=== PATIENT | female | born 1965 | race Caucasian/White ===

== ENCOUNTER 2017-06-07 14:01 | Observation (INO) ==
--- NOTE | 2017-06-07 16:51 | Emergency Department Note ---
Disposition Clinical Impression: Chest pain Qualifiers: Chest pain type: unspecified Qualified Code(s): R07.9 - Chest pain, unspecified Disposition: Admitted As Inpatient Condition: Good Referrals: Clarita Perdue MD [Primary Care Provider] - Forms: ED Satisfaction Letter Time of Disposition: 19:51 Chest Pain HPI - General Chief Complaint: ED Chest Pain Stated Complaint: chest pain, SIMA Time Seen by Provider: 06/07/17 16:38 Source: patient Limitations: no limitations Vital Signs Reviewed: Yes Nursing Notes Reviewed: Yes - History of Present Illness HPI Narrative: 52-year-old comes in complaining of chest pain began earlier today says it went into her arm and up into her jaw. Actually getting a cardiac echo when the chest pain began. Pt complaint: chest pain Onset (ago): Just [employer] Duration: constant Onset: during rest Pain Location: substernal, left chest Severity scale (1-10): 7 Pain Radiation: neck Improves with: nothing Worsens with: nothing Treatments prior to arrival chest pain: none - Related Data Home Medications Medication Instructions Recorded Confirmed Montelukast [Singulair] 10 mg PO HS 04/17/15 06/07/17 hydrOXYzine HCl [Hydroxyzine HCl] 50 mg PO HS 04/17/15 06/07/17 Albuterol Sulfate [Proair Hfa] 2 puff IH Q4H PRN 11/30/15 06/07/17 Escitalopram [Lexapro] 20 mg PO DAILY 11/30/15 06/07/17 TraZODone 100 mg PO HS 11/30/15 06/07/17 Ergocalciferol (VITAMIN D2) 50,000 unit PO TU 06/07/17 06/07/17 [Vitamin D2] Furosemide [Lasix] 40 mg PO DAILY 06/07/17 06/07/17 Lansoprazole [Prevacid] 30 mg PO BID 06/07/17 06/07/17 Spironolactone [Aldactone] 25 mg PO DAILY 06/07/17 06/07/17 Tizanidine HCl 4 mg PO TID PRN 06/07/17 06/07/17 Allergies Allergy/AdvReac Type Severity Reaction Status Date / Time Cyclobenzaprine Allergy See Verified 11/30/15 10:36 Comments diazepam Allergy Itching Verified 01/02/17 16:13 prednisone Allergy See Verified 11/30/15 10:36 Comments quetiapine Allergy See Verified 11/30/15 10:36 Comments Sulfa (Sulfonamide Allergy See Verified 11/30/15 10:36 Antibiotics) Comments All systems ED: reviewed and negative except as stated. Constitutional: Denies: fever, chills, weakness, weight change Eyes: Denies: eye pain, eye discharge, vision change ENT ED: Denies: ear pain, throat pain, dental pain, hearing loss, epistaxis, congestion, dysphagia Cardiovascular: Reports: chest pain. Denies: palpitations, dyspnea on exertion , edema, syncope Respiratory: Denies: cough, dyspnea, wheezes, hemoptysis, stridor Gastrointestinal: Denies: abdominal pain, nausea, vomiting, diarrhea, constipation, hematemesis, melena, hematochezia Genitourinary: Denies: dysuria, frequency, hematuria, discharge Musculoskeletal: Denies: back pain, neck pain, arthralgia, myalgia Integumentary: Denies: rash, abrasion, lesions Neurological: Denies: headache, weakness, numbness, paresthesias, confusion, abnormal gait, vertigo Psychiatric: Denies: anxiety, depression, suicidal thoughts, homicidal thoughts , auditory hallucinations, visual hallucinations Endocrine: Denies: fatigue Hematological/Lymphatic: Denies: easy bleeding, easy bruising Allergic/Immunologic: Denies: facial swelling, urticaria Chest Pain PMH - Past Medical History Medical history: Reports: arthritis, asthma, atrial fibrillation, CHF, COPD, GERD, hyperlipidemia, hypertension, migraine, RA Surgical history: Reports: appendectomy, cholecystectomy, herniorrhaphy, hysterectomy, orthopedic, other, other Psychiatric history: Reports: anxiety, bipolar, depression, prior suicide attempt, schizophrenia - Social History Smoking Status: Never smoker Alcohol use: Reports: none Drug use: Reports: none Physical Exam - General Limitations: no limitations General appearance: alert, in no apparent distress - Head Head exam: atraumatic, normocephalic, normal inspection - Eye Eye exam: Present: normal appearance, PERRL, EOMI - ENT ENT exam: normal exam, normal oropharynx, mucous membranes moist - Neck Neck exam: Present: normal inspection, full ROM, trachea midline - Chest Chest inspection: Present: normal inspection, symmetric chest wall rise - Respiratory Respiratory exam: Present: normal lung sounds bilaterally - Cardiovascular Cardiovascular exam: Present: regular rate, normal rhythm, normal heart sounds - Abdominal Exam Abdominal exam: Present: soft, Non-Tender. Absent: tenderness, distention, guarding, rebound, rigidity - Extremities Exam Extremities exam: Present: normal inspection, full ROM. Absent: tenderness, pedal edema - Expanded Lower Extremity Exam Neurovascular/Tendon exam: Present: normal capillary refill Gait: observed and normal - Back Exam Back exam: Present: normal inspection, full ROM. Absent: tenderness - Neurological Exam Neurological exam: Present: alert, oriented X3 - Psychiatric Psychiatric exam: Present: normal affect, normal mood - Skin Skin exam: Present: warm, dry, intact, normal color Course - Reevaluation(s) Reevaluation #1: 52-year-old with intermittent chest pain. Initial troponin is negative EKG is negative. Time: 19:52 - Consultations Consultation #1: Discussed with ruby Shea. Time: 19:52 Vital Signs Temperature 97.7 F 06/07/17 15:03 Pulse Rate 68 06/07/17 15:03 Respiratory Rate 18 06/07/17 15:03 Blood Pressure 150/80 06/07/17 15:03 O2 Sat by Pulse Oximetry 99 06/07/17 15:03 Temperature 97.7 F 06/07/17 15:03 Pulse Rate 68 06/07/17 15:03 Respiratory Rate 18 06/07/17 15:03 Blood Pressure 150/80 06/07/17 15:03 O2 Sat by Pulse Oximetry 99 06/07/17 15:03 Oxygen Delivery Oxygen Delivery Room Air Chest Pain - Lab Data Lab results reviewed: Yes I reviewed the patient's lab results. Result diagrams: 06/07/17 16:49 06/07/17 16:49 Lab Results 06/07/17 06/07/17 06/07/17 Range/Units 16:49 16:49 16:49 WBC 7.5 (4.3-11.1) K/mcL RBC 5.31 H (3.82-4.97) M/mcL Hgb 13.0 (11.5-15.4) g/dL Hct 41.8 (35.3-44.9) % MCV 78.7 L (83.0-100.0) fL MCH 24.5 L (28.0-33.3) pg MCHC 31.1 L (31.6-35.5) g/dL RDW 16.9 H (11.5-14.5) % Plt Count 324 (140-400) K/mcL MPV 9.2 L (9.4-12.4) fL Immature Gran % 0.7 (0-4) % Seg Neutrophils % 63.3 % Lymphocytes % 27.1 % Monocytes % 5.7 % Eosinophils % 2.3 % Basophils % 0.9 % Neutrophils # 4.8 (1.6-8.9) K/mcL Lymphocytes # 2.0 (0.6-4.6) K/mcL Monocytes # 0.4 (0.0-1.3) K/mcL Eosinophils # 0.2 (0.0-0.6) K/mcL Basophils # 0.1 (0.0-0.2) K/mcL PT 10.6 (9.4-12.1) Seconds INR 1.0 APTT 31.9 (26.0-36.0) Seconds Sodium 136 (136-145) mEq/L Potassium 4.0 (3.5-5.1) mEq/L Chloride 103 (98-107) mEq/L Carbon Dioxide 27 (23-29) mEq/L BUN 11 (6-20) mg/dL Creatinine 0.79 (0.60-1.20) mg/dL Est GFR ( Amer) > 60 (> 60) Est GFR (Non-Af Amer) > 60 (> 60) BUN/Creatinine Ratio 14 (6-26) Glucose 96 (70-105) mg/dL Calculated Osmolality 281 (280-300) Calcium 9.1 (8.6-10.3) mg/dL Troponin I (< 0.04) ng/mL B-Natriuretic Peptide (Less than 100) pg/mL 06/07/17 06/07/17 Range/Units 16:49 16:49 WBC (4.3-11.1) K/mcL RBC (3.82-4.97) M/mcL Hgb (11.5-15.4) g/dL Hct (35.3-44.9) % MCV (83.0-100.0) fL MCH (28.0-33.3) pg MCHC (31.6-35.5) g/dL RDW (11.5-14.5) % Plt Count (140-400) K/mcL MPV (9.4-12.4) fL Immature Gran % (0-4) % Seg Neutrophils % % Lymphocytes % % Monocytes % % Eosinophils % % Basophils % % Neutrophils # (1.6-8.9) K/mcL Lymphocytes # (0.6-4.6) K/mcL Monocytes # (0.0-1.3) K/mcL Eosinophils # (0.0-0.6) K/mcL Basophils # (0.0-0.2) K/mcL PT (9.4-12.1) Seconds INR APTT (26.0-36.0) Seconds Sodium (136-145) mEq/L Potassium (3.5-5.1) mEq/L Chloride (98-107) mEq/L Carbon Dioxide (23-29) mEq/L BUN (6-20) mg/dL Creatinine (0.60-1.20) mg/dL Est GFR ( Amer) (> 60) Est GFR (Non-Af Amer) (> 60) BUN/Creatinine Ratio (6-26) Glucose (70-105) mg/dL Calculated Osmolality (280-300) Calcium (8.6-10.3) mg/dL Troponin I < 0.03 (< 0.04) ng/mL B-Natriuretic Peptide 121 H (Less than 100) pg/mL - EKG Data EKG attestation: Yes I reviewed and interpreted this EKG. EKG shows normal: sinus rhythm Rate: normal Rhythm: NSR Interpretation: no acute changes Heart Score - Score History: Slightly Suspicious EKG: Normal Age: 45-65 Risk Factors: No risk factors known Troponin: Less than normal limit HEART Score Total: 1
[2017-06-07 17:02] LABS: Basophils # 0.1 K/mcL (0.0-0.2); Basophils % 0.9 %; Eosinophils # 0.2 K/mcL (0.0-0.6); Eosinophils % 2.3 %; Hematocrit 41.8 % (35.3-44.9); Immature Granulocytes % 0.7 % (0-4); Lymphocytes % 27.1 %; Mean Corpuscular HGB Conc 31.1 g/dL (31.6-35.5); Mean Corpuscular Hemoglobin 24.5 pg (28.0-33.3); Mean Corpuscular Volume 78.7 fL (83.0-100.0); Mean Platelet Volume 9.2 fL (9.4-12.4); Monocytes # 0.4 K/mcL (0.0-1.3); Monocytes % 5.7 %; Neutrophils # 4.8 K/mcL (1.6-8.9); Platelet Count 324 K/mcL (140-400); Red Blood Count 5.31 M/mcL (3.82-4.97); Red Cell Distribution Width 16.9 % (11.5-14.5); Segmented Neutrophils % 63.3 %
[2017-06-07 17:06] LABS: Prothrombin Time 10.6 Seconds (9.4-12.1)
[2017-06-07 17:09] LABS: Activated Partial Thrombo Time 31.9 Seconds (26.0-36.0)
[2017-06-07 17:15] LABS: BUN/Creatinine Ratio 14 (6-26); Blood Urea Nitrogen 11 mg/dL (6-20); Calcium 9.1 mg/dL (8.6-10.3); Carbon Dioxide 27 mEq/L (23-29); Chloride 103 mEq/L (98-107); Glucose 96 mg/dL (70-105); Osmolality,Calculated 281 (280-300); Sodium 136 mEq/L (136-145); eGFR For African Americans > 60 (> 60); eGFR For Non-African Americans > 60 (> 60)
--- NOTE | 2017-06-07 20:48 | Internal Med History&Physical ---
Date of Encounter: 06/07/17 Time of Encounter: 20:10 Assessment and Plan (1) Chest pain Current visit: Yes Status: Acute Admit for overnight observation [facility] Initial troponin neg Telemetry NG for chest pain No ischemic changes on ECG Continue aspirin, statin Mildly bradycardic so no BB Qualifiers: Chest pain type: unspecified Qualified Code(s): R07.9 - Chest pain, unspecified (2) Paroxysmal A-fib Current visit: No Status: Chronic Continue home medications. Rate controlled (3) COPD (chronic obstructive pulmonary disease) Current visit: No Status: Chronic Well controlled Continue home medications Qualifiers: COPD type: emphysema Emphysema type: centrilobular Qualified Code(s): J43.2 - Centrilobular emphysema Internal Medicine - H&P: HPI Chief complaint: Chest pain/pressure Admitted From: Emergency Dept Plans for Post Hospital Care: Home History of present illness: 52 year old female patient with hx of recurrent chest pain presented in the ER after developing chest pressure while having an echocardiogram done. The Echo was ordered by her PCP to evaluate for CHF. She's been experiencing 1-2 days of intermittent left-sided retrosternal chest pressure but states today the pain radiated to her left arm and .jaw. She's had a prior catheterization in 2011 which per cardiology notes did not show significant occlusions. She been admitted for similar symptoms within the last 24 months and her w/u was neg. She was given aspirin and will be admittted to the hospitalist service for further observation and w/u. Past Med Surg Social Fam HX - Past Medical History Medical history: arthritis, asthma, atrial fibrillation, CHF, COPD, GERD, hyperlipidemia, hypertension, migraine, RA Psychiatric history: anxiety, bipolar, depression, prior suicide attempt, schizophrenia - Past Surgical History Surgical History: appendectomy, cholecystectomy, herniorrhaphy, hysterectomy, orthopedic, other, other - Social History Smoking Status: Never smoker Smokeless Tobacco Status: No Alcohol use: none Drug use: none - Family History Father Hx Family Cardiac Disorders: Yes (triple bypass) Mother Hx Family Cardiac Disorders: Yes (pacer/defib) Internal Medicine - H&P: Meds Montelukast [Singulair] 10 mg PO HS 04/17/15 [History] hydrOXYzine HCl [Hydroxyzine HCl] 50 mg PO HS 04/17/15 [History] Albuterol Sulfate [Proair Hfa] 2 puff IH Q4H PRN 11/30/15 [History] Escitalopram [Lexapro] 20 mg PO DAILY 11/30/15 [History] TraZODone 100 mg PO HS 11/30/15 [History] Ergocalciferol (VITAMIN D2) [Vitamin D2] 50,000 unit PO TU 06/07/17 [History] Furosemide [Lasix] 40 mg PO DAILY 06/07/17 [History] Lansoprazole [Prevacid] 30 mg PO BID 06/07/17 [History] Spironolactone [Aldactone] 25 mg PO DAILY 06/07/17 [History] Tizanidine HCl 4 mg PO TID PRN 06/07/17 [History] 3 Allergy/AdvReac Type Severity Reaction Status Date / Time Cyclobenzaprine Allergy See Verified 11/30/15 10:36 Comments diazepam Allergy Itching Verified 01/02/17 16:13 prednisone Allergy See Verified 11/30/15 10:36 Comments quetiapine Allergy See Verified 11/30/15 10:36 Comments Sulfa (Sulfonamide Allergy See Verified 11/30/15 10:36 Antibiotics) Comments All Systems PM: A 10-system review of systems was performed and is negative for pertinent findings except as documented above in the HPI. - Constitutional Constitutional: no anorexia, no chills, no excessive sweating, no fatigue, no fever(s), no malaise, no night sweats, no weakness, no weight gain, no weight loss - EENT Eyes: no blurry vision, no diplopia, no pain, no photophobia Ears: no decreased hearing, no tinnitus Nose, mouth and throat: no bleeding gums, no dental pain, no lip swelling, no nasal congestion, no sore throat - Cardiovascular Cardiovascular ROS IM: chest pain, no diaphoresis, no edema, no irregular heart rhythm, no lightheadedness, no palpitations, no paroxysmal nocturnal dyspnea, no syncope - Gastrointestinal Gastrointestinal: no abdominal pain, no change in bowel habits, no coffee ground emesis, no diarrhea, no dyspepsia, no fecal incontinence, no melena, no tenesmus - Genitourinary Genitourinary: breast pain, change in libido, no breast skin changes, no breast swelling, no dysuria, no flank pain - Musculoskeletal Musculoskeletal ROS IM: myalgias - Integumentary Integumentary IM: no rash, no jaundice - Allergic/Immunologic Allergic/Immunologic: no tongue swelling, no throat swelling, no seasonal rhinorrhea, no uticaria, no wheezing, no lip swelling - Constitutional Vitals: Temp Pulse Resp BP Pulse Ox 97.7 F 58 16 152/91 98 06/07/17 15:03 06/07/17 20:18 06/07/17 20:18 06/07/17 20:18 06/07/17 20:18 General appearance: Present: A&O X 3, pleasant, no acute distress - Head Head exam: Present: atraumatic, normocephalic - Eye Eye exam: Present: PERRL, conjuntiva pink, sclera anicteric Pupils: Present: PERRL - Neck Neck exam general surgery: Present: supple, trachea midline. Absent: lymphadenopathy - Respiratory Respiratory exam: Present: CTAB. Absent: accessory muscle use, rales, rhonchi, wheezes - Cardiovascular Cardiovascular exam: Present: RRR, +S1, +S2. Absent: diastolic murmur, gallop, rubs, systolic murmur - GI/Abdominal GI/Abdominal exam: Present: normal bowel sounds, soft, no peritoneal signs. Absent: distended, tenderness - Extremities Exam Extremities exam: Present: warm, radial pulses palpable and symmetrical. Absent : calf tenderness, cyanotic, pedal edema - Neurological Exam Neurological exam: Present: CN II-XII intact, oriented X3, no focal deficits. Absent: pronater drift, facial droop, speech deficit - Skin Skin exam: Present: dry, intact Internal Med - H&P Results - Labs CBC & Chem 7: 06/07/17 16:49 06/07/17 16:49
[2017-06-07] MEDS ORDERED: Aspirin 81 MG TAB.CHEW PO STA (20:50)
[2017-06-07] MEDS: Nitroglycerin 0.4 MG TAB.SUBL SL PRN ×3 (21:54→23:56)
[2017-06-07] MEDS: hydrOXYzine pamoate 25 MG CAPSULE PO SCH (22:23)
[2017-06-07] MEDS: tiZANidine 4 MG TABLET PO PRN (22:23)
[2017-06-07] MEDS: traZODone 50 MG TABLET PO SCH (22:23)
[2017-06-07] MEDS: Acetaminophen 325 MG TABLET PO PRN (23:05)
[2017-06-07] MEDS ORDERED: Nitroglycerin 1 INCH/GM PACKET TP SCH (23:15)
[2017-06-08 03:24] LABS: Basophils % 0.7 %; Eosinophils # 0.2 K/mcL (0.0-0.6); Eosinophils % 2.8 %; Hematocrit 34.1 % (35.3-44.9); Immature Granulocytes % 0.4 % (0-4); Lymphocytes # 2.2 K/mcL (0.6-4.6); Lymphocytes % 38.8 %; Mean Corpuscular HGB Conc 31.1 g/dL (31.6-35.5); Mean Corpuscular Hemoglobin 24.4 pg (28.0-33.3); Mean Corpuscular Volume 78.4 fL (83.0-100.0); Monocytes # 0.4 K/mcL (0.0-1.3); Monocytes % 7.7 %; Neutrophils # 2.8 K/mcL (1.6-8.9); Platelet Count 251 K/mcL (140-400); Red Blood Count 4.35 M/mcL (3.82-4.97); Red Cell Distribution Width 16.8 % (11.5-14.5); Segmented Neutrophils % 49.6 %
[2017-06-08 03:26] LABS: Hemoglobin 10.6 g/dL (11.5-15.4)
[2017-06-08 03:30] LABS: Prothrombin Time 11.2 Seconds (9.4-12.1)
[2017-06-08 03:41] LABS: Alanine Aminotransferase 14 Units/L (7-52); Albumin 3.1 g/dL (3.5-5.7); Albumin/Globulin Ratio 1.4 (1.1-2.2); Alkaline Phosphatase 63 Units/L (34-104); Aspartate Amino Transferase 13 Units/L (13-39); BUN/Creatinine Ratio 18 (6-26); Bilirubin,Total 0.3 mg/dL (0.3-1.0); Blood Urea Nitrogen 12 mg/dL (6-20); Calcium 8.4 mg/dL (8.6-10.3); Carbon Dioxide 28 mEq/L (23-29); Chloride 107 mEq/L (98-107); Globulin 2.2 g/dL (2.4-3.5); Glucose 111 mg/dL (70-105); Magnesium 1.8 mg/dL (1.6-2.6); Osmolality,Calculated 290 (280-300); Potassium 3.7 mEq/L (3.5-5.1); Sodium 140 mEq/L (136-145); Total Protein 5.3 g/dL (6.4-8.9); eGFR For African Americans > 60 (> 60); eGFR For Non-African Americans > 60 (> 60)
[2017-06-08] MEDS ORDERED: Regadenoson 0.4 MG/5 ML SYRINGE IVP ONE (06:08)
--- NOTE | 2017-06-08 09:38 | Internal Med Progress Note ---
Date of Encounter: 06/08/17 - Assessment and plan (1) Chest pain Current Visit: Yes Status: Acute Qualifiers: Chest pain type: unspecified Qualified Code(s): R07.9 - Chest pain, unspecified (2) DVT prophylaxis Current Visit: Yes Status: Acute (3) Anxiety disorder Current Visit: Yes Status: Chronic Qualifiers: Anxiety disorder type: generalized anxiety disorder Qualified Code(s): F41.1 - Generalized anxiety disorder (4) COPD (chronic obstructive pulmonary disease) Current Visit: Yes Status: Chronic Qualifiers: COPD type: emphysema Emphysema type: centrilobular Qualified Code(s): J43.2 - Centrilobular emphysema (5) Paroxysmal A-fib Current Visit: Yes Status: Chronic (6) Schizoaffective disorder Current Visit: Yes Status: Chronic Qualifiers: Schizoaffective disorder type: depressive Qualified Code(s): F25.1 - Schizoaffective disorder, depressive type - Constitutional Vitals: Temp Pulse Resp BP Pulse Ox 97.9 F 56 16 119/70 96 06/08/17 06:46 06/08/17 06:46 06/08/17 06:46 06/08/17 06:46 06/08/17 06:46 General appearance: Present: A&O X 3, pleasant, no acute distress Internal Medicine: Result - Labs CBC & Chem 7: 06/08/17 03:14 06/08/17 03:14 Labs: Short CBC 06/08/17 Range/Units 03:14 WBC 5.7 (4.3-11.1) K/mcL Hgb 10.6 L D (11.5-15.4) g/dL Hct 34.1 L (35.3-44.9) % Plt Count 251 (140-400) K/mcL Neutrophils # 2.8 (1.6-8.9) K/mcL BMP 06/08/17 03:14 Sodium 140 Potassium 3.7 Chloride 107 Carbon Dioxide 28 BUN 12 Creatinine 0.66 Glucose 111 H Calcium 8.4 L Cardiac Enzymes 06/07/17 06/08/17 Range/Units 23:59 03:14 Troponin I < 0.03 < 0.03 (< 0.04) ng/mL Liver Function 06/08/17 Range/Units 03:14 Total Bilirubin 0.3 (0.3-1.0) mg/dL AST 13 (13-39) Units/L ALT 14 (7-52) Units/L Alkaline Phosphatase 63 (34-104) Units/L Albumin 3.1 L (3.5-5.7) g/dL - ABG Interpretation ABG results: PT/INR, D-dimer PT 11.2 Seconds (9.4-12.1) 06/08/17 03:14 Consult Discharge Plan - Plan Referrals: Clarita Perdue MD [Primary Care Provider] -
--- NOTE | 2017-06-08 09:41 | Internal Med Progress Note ---
Date of Encounter: 06/08/17 Time of Encounter: 09:40 - Assessment and plan (1) Chest pain Current Visit: Yes Status: Acute Assessment and plan: ECHO from same day 06/07 EF Normal, no WMA Trop negative X3 Follow stress test Qualifiers: Chest pain type: unspecified Qualified Code(s): R07.9 - Chest pain, unspecified (2) DVT prophylaxis Current Visit: Yes Status: Acute Assessment and plan: Heaprin SQ (3) Anxiety disorder Current Visit: Yes Status: Chronic Assessment and plan: continue home meds Qualifiers: Anxiety disorder type: generalized anxiety disorder Qualified Code(s): F41.1 - Generalized anxiety disorder (4) COPD (chronic obstructive pulmonary disease) Current Visit: Yes Status: Chronic Assessment and plan: continue home meds, not in exacerbation Qualifiers: COPD type: emphysema Emphysema type: centrilobular Qualified Code(s): J43.2 - Centrilobular emphysema (5) Paroxysmal A-fib Current Visit: Yes Status: Chronic Assessment and plan: continue home meds (6) Schizoaffective disorder Current Visit: Yes Status: Chronic Assessment and plan: continue home meds Qualifiers: Schizoaffective disorder type: depressive Qualified Code(s): F25.1 - Schizoaffective disorder, depressive type - Subjective Interval history: Seen and evaluated at bedside She has no new complains She states she has chest pain when she ambulates. There is no chest wall tenderness. - Constitutional Vitals: Temp Pulse Resp BP Pulse Ox 97.9 F 56 16 119/70 96 06/08/17 06:46 06/08/17 06:46 06/08/17 06:46 06/08/17 06:46 06/08/17 06:46 General appearance: Present: A&O X 3, morbidly obese, pleasant, no acute distress - Head Head exam: Present: atraumatic, normocephalic - Eye Eye exam: Present: PERRL, conjuntiva pink, sclera anicteric Pupils: Present: PERRL - Neck Neck exam general surgery: Present: supple, trachea midline. Absent: lymphadenopathy - Respiratory Respiratory exam: Present: CTAB. Absent: accessory muscle use, rales, rhonchi, wheezes - Cardiovascular Cardiovascular exam: Present: RRR, +S1, +S2. Absent: diastolic murmur, gallop, rubs, systolic murmur - GI/Abdominal GI/Abdominal exam: Present: normal bowel sounds, soft, no peritoneal signs. Absent: distended, tenderness - Extremities Exam Extremities exam: Present: warm, radial pulses palpable and symmetrical. Absent : calf tenderness, cyanotic, pedal edema - Neurological Exam Neurological exam: Present: alert, CN II-XII intact, oriented X3, no focal deficits. Absent: pronater drift, facial droop, speech deficit - Skin Skin exam: Present: dry, intact Internal Medicine: Result - Labs CBC & Chem 7: 06/08/17 03:14 06/08/17 03:14 Labs: Short CBC 06/08/17 Range/Units 03:14 WBC 5.7 (4.3-11.1) K/mcL Hgb 10.6 L D (11.5-15.4) g/dL Hct 34.1 L (35.3-44.9) % Plt Count 251 (140-400) K/mcL Neutrophils # 2.8 (1.6-8.9) K/mcL BMP 06/08/17 03:14 Sodium 140 Potassium 3.7 Chloride 107 Carbon Dioxide 28 BUN 12 Creatinine 0.66 Glucose 111 H Calcium 8.4 L Cardiac Enzymes 06/07/17 06/08/17 Range/Units 23:59 03:14 Troponin I < 0.03 < 0.03 (< 0.04) ng/mL Liver Function 06/08/17 Range/Units 03:14 Total Bilirubin 0.3 (0.3-1.0) mg/dL AST 13 (13-39) Units/L ALT 14 (7-52) Units/L Alkaline Phosphatase 63 (34-104) Units/L Albumin 3.1 L (3.5-5.7) g/dL - ABG Interpretation ABG results: PT/INR, D-dimer PT 11.2 Seconds (9.4-12.1) 06/08/17 03:14 Consult Discharge Plan - Plan Referrals: Clarita Perdue MD [Primary Care Provider] -
[2017-06-08] MEDS: Aspirin Enteric Coated 325 MG Tablet PO SCH (10:24)
[2017-06-08] MEDS: Spironolactone 25 MG TABLET PO SCH (10:24)
[2017-06-08] MEDS: Furosemide 40 MG TABLET PO SCH (10:24)
[2017-06-08] MEDS: Cholecalciferol (D-3) 1,000 UNIT TABLET PO SCH (10:25)
[2017-06-08] MEDS: Nitroglycerin 0.4 MG TAB.SUBL SL PRN ×3 (18:35→22:15)
[2017-06-08] MEDS: hydrOXYzine pamoate 25 MG CAPSULE PO SCH (19:54)
[2017-06-08] MEDS: traZODone 50 MG TABLET PO SCH (19:54)
[2017-06-08] MEDS: Acetaminophen 325 MG TABLET PO PRN (19:57)
[2017-06-09] MEDS: Furosemide 40 MG TABLET PO SCH (09:34)
[2017-06-09] MEDS: Spironolactone 25 MG TABLET PO SCH (09:34)
--- NOTE | 2017-06-09 09:34 | Internal Med Progress Note ---
Date of Encounter: 06/09/17 Time of Encounter: 09:32 - Assessment and plan (1) Chest pain Current Visit: Yes Status: Acute Assessment and plan: ECHO from same day 06/07 EF Normal, no WMA Trop negative X3 Follow stress test Qualifiers: Chest pain type: unspecified Qualified Code(s): R07.9 - Chest pain, unspecified (2) DVT prophylaxis Current Visit: Yes Status: Acute Assessment and plan: Heaprin SQ (3) Anxiety disorder Current Visit: Yes Status: Chronic Assessment and plan: continue home meds Qualifiers: Anxiety disorder type: generalized anxiety disorder Qualified Code(s): F41.1 - Generalized anxiety disorder (4) COPD (chronic obstructive pulmonary disease) Current Visit: Yes Status: Chronic Assessment and plan: continue home meds, not in exacerbation Qualifiers: COPD type: emphysema Emphysema type: centrilobular Qualified Code(s): J43.2 - Centrilobular emphysema (5) Paroxysmal A-fib Current Visit: Yes Status: Chronic Assessment and plan: continue home meds (6) Schizoaffective disorder Current Visit: Yes Status: Chronic Assessment and plan: continue home meds Qualifiers: Schizoaffective disorder type: depressive Qualified Code(s): F25.1 - Schizoaffective disorder, depressive type - Subjective Interval history: Seen and evaluated at bedside She has no new complains She states she has chest pain when she ambulates. There is no chest wall tenderness. - Constitutional Vitals: Temp Pulse Resp BP Pulse Ox 98.2 F 64 16 123/68 98 06/09/17 06:41 06/09/17 06:41 06/09/17 06:41 06/09/17 06:41 06/09/17 06:41 General appearance: Present: A&O X 3, morbidly obese, pleasant, no acute distress - Head Head exam: Present: atraumatic, normocephalic - Eye Eye exam: Present: PERRL, conjuntiva pink, sclera anicteric Pupils: Present: PERRL - Neck Neck exam general surgery: Present: supple, trachea midline. Absent: lymphadenopathy - Respiratory Respiratory exam: Present: CTAB. Absent: accessory muscle use, rales, rhonchi, wheezes - Cardiovascular Cardiovascular exam: Present: RRR, +S1, +S2. Absent: diastolic murmur, gallop, rubs, systolic murmur - GI/Abdominal GI/Abdominal exam: Present: normal bowel sounds, soft, no peritoneal signs. Absent: distended, tenderness - Extremities Exam Extremities exam: Present: warm, radial pulses palpable and symmetrical. Absent : calf tenderness, cyanotic, pedal edema - Neurological Exam Neurological exam: Present: alert, CN II-XII intact, oriented X3, no focal deficits. Absent: pronater drift, facial droop, speech deficit - Skin Skin exam: Present: dry, intact Internal Medicine: Result - Labs CBC & Chem 7: 06/08/17 03:14 06/08/17 03:14 - ABG Interpretation ABG results: PT/INR, D-dimer PT 11.2 Seconds (9.4-12.1) 06/08/17 03:14 Consult Discharge Plan - Plan Referrals: Clarita Perdue MD [Primary Care Provider] -
[2017-06-09] MEDS: Aspirin Enteric Coated 325 MG Tablet PO SCH (09:36)
[2017-06-09] MEDS: Cholecalciferol (D-3) 1,000 UNIT TABLET PO SCH (09:37)
[2017-06-09] MEDS: Nitroglycerin 0.4 MG TAB.SUBL SL PRN ×3 (14:56→20:33)
[2017-06-09] MEDS: hydrOXYzine pamoate 25 MG CAPSULE PO SCH (20:33)
[2017-06-09] MEDS: traZODone 50 MG TABLET PO SCH (20:33)
[2017-06-09] MEDS: Acetaminophen 325 MG TABLET PO PRN (20:35)
[2017-06-10] MEDS: Furosemide 40 MG TABLET PO SCH (08:48)
[2017-06-10] MEDS: Spironolactone 25 MG TABLET PO SCH (08:48)
[2017-06-10] MEDS: Aspirin Enteric Coated 325 MG Tablet PO SCH (08:48)
--- NOTE | 2017-06-10 10:04 | Internal Med Progress Note ---
Date of Encounter: 06/10/17 Time of Encounter: 10:04 - Assessment and plan (1) Chest pain Current Visit: Yes Status: Acute Assessment and plan: ECHO from same day 06/07 EF Normal, no WMA Trop negative X3 Stress test abnormal, consult cardiology Qualifiers: Chest pain type: unspecified Qualified Code(s): R07.9 - Chest pain, unspecified (2) DVT prophylaxis Current Visit: Yes Status: Acute Assessment and plan: Heaprin SQ (3) Anxiety disorder Current Visit: Yes Status: Chronic Assessment and plan: continue home meds Qualifiers: Anxiety disorder type: generalized anxiety disorder Qualified Code(s): F41.1 - Generalized anxiety disorder (4) COPD (chronic obstructive pulmonary disease) Current Visit: Yes Status: Chronic Assessment and plan: continue home meds, not in exacerbation Qualifiers: COPD type: emphysema Emphysema type: centrilobular Qualified Code(s): J43.2 - Centrilobular emphysema (5) Paroxysmal A-fib Current Visit: Yes Status: Chronic Assessment and plan: continue home meds (6) Schizoaffective disorder Current Visit: Yes Status: Chronic Assessment and plan: continue home meds Qualifiers: Schizoaffective disorder type: depressive Qualified Code(s): F25.1 - Schizoaffective disorder, depressive type - Subjective Interval history: Seen and evaluated at bedside She has no new complains She states she has chest pain when she ambulates. There is no chest wall tenderness. Stress test was abnormal, cardio has been consulted - Constitutional Vitals: Temp Pulse Resp BP Pulse Ox 98.2 F 56 16 136/81 92 06/10/17 05:12 06/10/17 05:12 06/10/17 05:12 06/10/17 05:12 06/10/17 05:12 General appearance: Present: A&O X 3, morbidly obese, pleasant, no acute distress - Head Head exam: Present: atraumatic, normocephalic - Eye Eye exam: Present: PERRL, conjuntiva pink, sclera anicteric Pupils: Present: PERRL - Neck Neck exam general surgery: Present: supple, trachea midline. Absent: lymphadenopathy - Respiratory Respiratory exam: Present: CTAB. Absent: accessory muscle use, rales, rhonchi, wheezes - Cardiovascular Cardiovascular exam: Present: RRR, +S1, +S2. Absent: diastolic murmur, gallop, rubs, systolic murmur - GI/Abdominal GI/Abdominal exam: Present: normal bowel sounds, soft, no peritoneal signs. Absent: distended, tenderness - Extremities Exam Extremities exam: Present: warm, radial pulses palpable and symmetrical. Absent : calf tenderness, cyanotic, pedal edema - Neurological Exam Neurological exam: Present: alert, CN II-XII intact, oriented X3, no focal deficits. Absent: pronater drift, facial droop, speech deficit - Skin Skin exam: Present: dry, intact Internal Medicine: Result - Labs CBC & Chem 7: 06/08/17 03:14 06/08/17 03:14 - ABG Interpretation ABG results: PT/INR, D-dimer PT 11.2 Seconds (9.4-12.1) 06/08/17 03:14 Consult Discharge Plan - Plan Referrals: Clarita Perdue MD [Primary Care Provider] -
--- NOTE | 2017-06-10 16:09 | Electrocardiograph Report ---
[place] [id number] Test Date: 2017-06-07 Pat Name: Elizabeth Bingham Department: 104 Room: [facility] Gender: F Pc Analyst: MAU : 1965 Requested By: Bravo Leiva Order Number: [id number] Reading MD: Tono Awad DO Measurements Intervals [place] Rate: 62 P: 46 MO: 176 QRS: 11 QRSD: 97 T: 15 QT: 407 QTc: 412 Interpretive Statements SINUS RHYTHM Electronically Signed On 06-10-2017 16:07:17 EST by Tono Awad DO
--- NOTE | 2017-06-10 16:23 | Electrocardiograph Report ---
[place] [id number] Test Date: 2017-06-07 Pat Name: Elizabeth Bingham Department: 114 Room: [facility] Gender: F Corporate Travel Expert: EVA : 1965 Requested By: Malik Gonzalez Order Number: [id number] Reading MD: Tono Awad DO Measurements Intervals [place] Rate: 55 P: 55 [place]: 174 QRS: 7 QRSD: 93 T: 0 QT: 459 QTc: 447 Interpretive Statements SINUS BRADYCARDIA Electronically Signed On 06-10-2017 16:22:04 EST by Tono Awad DO
--- NOTE | 2017-06-10 16:23 | Electrocardiograph Report ---
[place] [id number] Test Date: 2017-06-07 Pat Name: Elizabeth Bingham Department: 114 Room: [facility] Gender: F Special Police Officer: EVA : 1965 Requested By: Dmitry Zelaya Order Number: [id number] Reading MD: Tono Awad DO Measurements Intervals [place] Rate: 63 P: 55 [place]: 180 QRS: 6 QRSD: 95 T: 11 QT: 453 QTc: 461 Interpretive Statements SINUS RHYTHM PROLONGED QT INTERVAL Electronically Signed On 06-10-2017 16:21:54 EST by Tono Awad DO
[2017-06-10] MEDS: tiZANidine 4 MG TABLET PO PRN (22:19)
[2017-06-10] MEDS: traZODone 50 MG TABLET PO SCH (22:19)
[2017-06-10] MEDS: Acetaminophen 325 MG TABLET PO PRN (22:19)
[2017-06-10] MEDS: hydrOXYzine pamoate 25 MG CAPSULE PO SCH (22:19)
[2017-06-10] MEDS ORDERED: Simethicone 80 MG TAB.CHEW PO PRN (22:25)
[2017-06-11] MEDS: Nitroglycerin 0.4 MG TAB.SUBL SL PRN ×3 (00:30→00:46)
[2017-06-11] MEDS ORDERED: *HR* OxyCODONE Immed Rel 5 MG TABLET PO PRN (01:15)
[2017-06-11] MEDS ORDERED: *HR* Morphine 2 MG/ML SYRINGE IV PRN ×2 (01:30→21:01)
--- NOTE | 2017-06-11 08:52 | Cardiology Consult Note ---
<Bienvenido Germain - Last Filed: 06/11/17 10:00> Date of Encounter: 06/11/17 Time of Encounter: 08:45 Assessment and Plan (1) Abnormal nuclear stress test Current Visit: Yes Status: Acute Per Cardiology: Patient well known to cardiology. Has had significant cardiac testing in the past. Negative stress test August 2010, negative stress test May 2011, normal coronary angiogram June 2011, negative stress test September 2011, negative stress test July 2012, negative nuclear stress test 05/2014, negative DSE April 2015 , most recent echo April 2015 with EF 60%, mild diastolic dysfunction, no significant valvular dysfunction, no pulmonary hypertension. Stress test noted from yesterday as below : Impression: Pharmacologic stress ECG is negative for ischemia at level of heart rate achieved. Gated EF = 75% Small sized, moderate intensity, reversible apical inferior defect possibly due to ischemia. Atypical chest pain. Troponin is negative 3. Will decrease aspirin to baby aspirin. Patient desires to proceed with catheterization. Discussed with Dr. Sutton and Dr. Sonia Gabriel. Discussion w patient/family: The assessment and plan as outlined above was discussed with the patient who expressed understanding and agreement. All questions were answered. Thank you for involving us in the care of your patient. Please call with any questions. History of Present Illness Consult date: 06/11/17 Requesting physician: Dmitry Zelaya Consult reason: Abnormal Stress Test Chief complaint: CP History of present illness: Ms. Bingham is a 52 year old female with a relevant past medical history of hypertension, atrial fibrillation, obesity, schizophrenia, bipolar disorder. Last seen by Dr. Awad April 2017. Cardiology consult for abnormal stress test results. Reports midsternal chest pain worse with deep inspiration. Reports overall increased symptom frequency. Denies any recent infectious process. Reports occasional palpitations, however unchanged from baseline. Past Med Surg Social Fam HX - Past Medical History Attestation: Yes The following information was validated with the patient. Source: patient, old records reviewed Medical history: arthritis, asthma, atrial fibrillation, CHF, COPD, GERD, hyperlipidemia, hypertension, migraine, RA Psychiatric history: anxiety, bipolar, depression, prior suicide attempt, schizophrenia - Past Surgical History Surgical History: appendectomy, cholecystectomy, herniorrhaphy, hysterectomy, orthopedic, other, other - Social History Smoking Status: Never smoker Smokeless Tobacco Status: No Alcohol use: none Drug use: none - Family History Father Living Status: Age at : 68 Cause of : cancer Hx Family Cardiac Disorders: Yes (triple bypass,mi) Mother Living Status: Age at : 69 Cause of : renal failure Hx Family Cardiac Disorders: Yes (pacer/defib) Hx Family Respiratory Disorders: Yes (TB) Medications and Allergies Montelukast [Singulair] 10 mg PO DAILY 04/17/15 [History] hydrOXYzine HCl [Hydroxyzine HCl] 50 mg PO HS 04/17/15 [History] Albuterol Sulfate [Proair Hfa] 2 puff IH Q4H PRN 11/30/15 [History] Escitalopram [Lexapro] 20 mg PO DAILY 11/30/15 [History] TraZODone 100 mg PO HS 11/30/15 [History] Ergocalciferol (VITAMIN D2) [Vitamin D2] 50,000 unit PO TU 06/07/17 [History] Furosemide [Lasix] 40 mg PO DAILY 06/07/17 [History] Lansoprazole [Prevacid] 30 mg PO BID 06/07/17 [History] Spironolactone [Aldactone] 25 mg PO DAILY 06/07/17 [History] Tizanidine HCl 4 mg PO TID PRN 06/07/17 [History] 3 Allergy/AdvReac Type Severity Reaction Status Date / Time Cyclobenzaprine Allergy See Verified 11/30/15 10:36 Comments diazepam Allergy Itching Verified 01/02/17 16:13 prednisone Allergy See Verified 11/30/15 10:36 Comments quetiapine Allergy See Verified 11/30/15 10:36 Comments Sulfa (Sulfonamide Allergy See Verified 11/30/15 10:36 Antibiotics) Comments All Systems Review: A 10-system review of systems was performed and is negative for pertinent findings except as documented above in the HPI. - Cardiovascular Cardiovascular: as per HPI, chest pain at rest, palpitations Physical Examination Vital Signs, Last 4 Hours Temp Pulse Resp BP Pulse Ox 06/11/17 06:44 97.7 F 59 20 103/55 93 General: Conversant, No Apparent Distress HEENT: Atraumatic, Normocephaly, Mucus Membranes Moist Neck: No JVD, Normal carotid pulses Cardiac: Reg Rate and Rhythm, Normal S1 and S2, No Murmur Lungs: Normal Breath Sounds, No Wheeze, Rales, Rhonchi Neuro: Alert and responsive, No focal deficits noted Abdomen: Soft, Non-Tender Skin: No rashes noted on visualized skin Musculoskeletal: Other (Chest wall tenderness nild with palpation, increased with deep inspiration.) Extremities: No Clubbing, No Cyanosis, No Edema, Normal Pulses Results 06/08/17 03:14 06/08/17 03:14 Laboratory Tests 06/07/17 06/07/17 06/07/17 16:49 16:49 16:49 Hgb 13.0 INR Creatinine Est GFR (Non-Af Amer) Troponin I < 0.03 B-Natriuretic Peptide 121 H 06/07/17 06/08/17 06/08/17 23:59 03:14 03:14 Hgb 10.6 L D INR Creatinine Est GFR (Non-Af Amer) Troponin I < 0.03 < 0.03 B-Natriuretic Peptide 06/08/17 06/08/17 03:14 03:14 Hgb INR 1.0 Creatinine 0.66 Est GFR (Non-Af Amer) > 60 Troponin I B-Natriuretic Peptide ITS Impressions Chest X-Ray 06/07/17 15:09 IMPRESSION: Stable exam. No acute cardiopulmonary findings. D/ / Ami Rutherford MD / Ami Rutherford MD Interpreting Provider: Ami Rutherford MD Active Medications Acetaminophen (Tylenol) 650 mg PO Q6HR PRN PRN Reason: Pain Stop: 12/07/17 22:39 Last Admin: 06/10/17 22:19 Dose: 650 mg Albuterol Sulfate (Albuterol Inhaler) 2 puff IH [id number] PRN PRN Reason: Shortness Of Breath Stop: 12/07/17 20:37 Aspirin (Aspirin Ec) 325 mg PO DAILY [facility]ATINA Stop: 12/08/17 09:01 Last Admin: 06/10/17 08:48 Dose: 325 mg Atorvastatin Calcium (Lipitor) 40 mg PO HS [facility]ATINA Stop: 12/07/17 21:01 Last Admin: 06/10/17 22:19 Dose: 40 mg Escitalopram Oxalate (Lexapro) 20 mg PO DAILY [facility] Stop: 12/08/17 09:01 Last Admin: 06/10/17 08:48 Dose: 20 mg Furosemide (Lasix) 40 mg PO DAILY [facility] Stop: 12/08/17 09:01 Last Admin: 06/10/17 08:48 Dose: 40 mg Hydroxyzine Pamoate (Hydroxyzine Pamoate) 50 mg PO HS [facility] Stop: 12/07/17 21:01 Last Admin: 06/10/17 22:19 Dose: 50 mg Montelukast Sodium (Singulair) 10 mg PO HS [facility] Stop: 12/07/17 21:01 Last Admin: 06/10/17 22:19 Dose: 10 mg Morphine Sulfate (Morphine Sulfate) 2 mg IV Q4HR PRN; Protocol PRN Reason: CHEST PAIN Stop: 12/11/17 01:16 Last Admin: 06/11/17 01:35 Dose: 2 mg Nitroglycerin (Nitroglycerin) 0.4 mg SL Q5MIN PRN PRN Reason: Chest Pain Stop: 12/07/17 21:20 Last Admin: 06/11/17 00:46 Dose: 0.4 mg Omeprazole (Prilosec) 20 mg PO BID [facility] Stop: 12/07/17 21:01 Last Admin: 06/10/17 22:18 Dose: 20 mg Simethicone (Gas-X) 80 mg PO TID PRN PRN Reason: Dyspepsia Stop: 12/10/17 22:26 Last Admin: 06/10/17 23:12 Dose: 80 mg Spironolactone (Aldactone) 25 mg PO DAILY [facility] Stop: 12/08/17 09:01 Last Admin: 06/10/17 08:48 Dose: 25 mg Tizanidine HCl (Zanaflex) 4 mg PO TID PRN PRN Reason: Headache Stop: 12/07/17 20:37 Last Admin: 06/10/17 22:19 Dose: 4 mg Trazodone HCl (Trazodone) 100 mg PO [facility] Stop: 12/07/17 21:01 Last Admin: 06/10/17 22:19 Dose: 100 mg Vitamin D (Vitamin D) 1,000 unit PO QWEEK [facility] Stop: 12/11/17 10:01 STRESS TEST: Impression: Pharmacologic stress ECG is negative for ischemia at level of heart rate achieved. Gated EF = 75% Small sized, moderate intensity, reversible apical inferior defect possibly due to ischemia. - Imaging and Cardiology Stress Test: report reviewed Cardiac cath: report reviewed - EKG Interpretation EKG results cardiology: personally reviewed (Sinus bradycardia in the 50s, T waves in V3.), no diagnostic ischemia Consult Discharge Plan - Plan Referrals: Clarita Perdue MD [Primary Care Provider] - <Chelle Sutton - Last Filed: 06/11/17 11:54> Date of Encounter: 06/11/17 - Attending Attestation I examined this patient and my medical decision-making was reviewed with the PUBLIC POLICY MANAGER. I agree with the documented findings, disposition and treatment plan as described. Ms. Bingham presents with atypical chest pain, negative troponin and no new ECG changes. She's had extensive cardiac testing in the past which has been negative. However, during this admission, she underwent stress testing demonstrating an apical inferior perfusion defect on nuclear imaging which is suspicious for a false positive result. We gave the patient options for management including invasive vs noninvasive conservative approach. After discussing options with the patient as well as the R/B/A of the an invasive approach, the patient elected to proceed with [facility] with an understanding of the risks of the procedure. Further recommendations to follow testing. Assessment and Plan Discussion w patient/family: The assessment and plan as outlined above was discussed with the patient and/or family members who expressed understanding and agreement. All questions were answered. Thank you for involving us in the care of your patient. Please call with any questions. History of Present Illness History of present illness: Ms. Bingham is a 52 year old female All Systems Review: A 10-system review of systems was performed and is negative for pertinent findings except as documented above in the HPI. Physical Examination Vital Signs, Last 4 Hours Temp Pulse Resp BP Pulse Ox 06/11/17 10:44 98.2 F 65 18 121/69 93 06/11/17 09:16 76 130/73 Results 06/08/17 03:14 06/08/17 03:14
[2017-06-11] MEDS: Spironolactone 25 MG TABLET PO SCH (09:12)
[2017-06-11] MEDS: Furosemide 40 MG TABLET PO SCH (09:12)
[2017-06-11] MEDS: Aspirin Enteric Coated 81 MG Tablet PO SCH (09:15)
[2017-06-11] MEDS ORDERED: Cholecalciferol (D-3) 1,000 UNIT TABLET PO SCH (10:00)
--- NOTE | 2017-06-11 10:31 | Internal Med Progress Note ---
Date of Encounter: 06/11/17 Time of Encounter: 10:30 - Assessment and plan (1) Chest pain Current Visit: Yes Status: Acute Assessment and plan: Possibly stable angina ECHO from same day 06/07 EF Normal, no WMA Trop negative X3 Stress test abnormal, consulted cardiology for [facility] today Qualifiers: Chest pain type: unspecified Qualified Code(s): R07.9 - Chest pain, unspecified (2) DVT prophylaxis Current Visit: Yes Status: Acute Assessment and plan: Heaprin SQ (3) Anxiety disorder Current Visit: Yes Status: Chronic Assessment and plan: continue home meds Qualifiers: Anxiety disorder type: generalized anxiety disorder Qualified Code(s): F41.1 - Generalized anxiety disorder (4) COPD (chronic obstructive pulmonary disease) Current Visit: Yes Status: Chronic Assessment and plan: continue home meds, not in exacerbation Qualifiers: COPD type: emphysema Emphysema type: centrilobular Qualified Code(s): J43.2 - Centrilobular emphysema (5) Paroxysmal A-fib Current Visit: Yes Status: Chronic Assessment and plan: continue home meds (6) Schizoaffective disorder Current Visit: Yes Status: Chronic Assessment and plan: continue home meds Qualifiers: Schizoaffective disorder type: depressive Qualified Code(s): F25.1 - Schizoaffective disorder, depressive type (7) Abnormal nuclear stress test Current Visit: Yes Status: Acute Assessment and plan: cardio eval - Subjective Interval history: Seen and evaluated at bedside She has no new complains She states she has chest pain when she ambulates. There is no chest wall tenderness. Stress test was abnormal, cardio has been consulted, for [facility] today - Constitutional Vitals: Temp Pulse Resp BP Pulse Ox 97.7 F 76 20 130/73 93 06/11/17 06:44 06/11/17 09:16 06/11/17 06:44 06/11/17 09:16 06/11/17 06:44 General appearance: Present: A&O X 3, morbidly obese, pleasant, no acute distress - Head Head exam: Present: atraumatic, normocephalic - Eye Eye exam: Present: PERRL, conjuntiva pink, sclera anicteric Pupils: Present: PERRL - Neck Neck exam general surgery: Present: supple, trachea midline. Absent: lymphadenopathy - Respiratory Respiratory exam: Present: CTAB. Absent: accessory muscle use, rales, rhonchi, wheezes - Cardiovascular Cardiovascular exam: Present: RRR, +S1, +S2. Absent: diastolic murmur, gallop, rubs, systolic murmur - GI/Abdominal GI/Abdominal exam: Present: normal bowel sounds, soft, no peritoneal signs. Absent: distended, tenderness - Extremities Exam Extremities exam: Present: warm, radial pulses palpable and symmetrical. Absent : calf tenderness, cyanotic, pedal edema - Neurological Exam Neurological exam: Present: alert, CN II-XII intact, oriented X3, no focal deficits. Absent: pronater drift, facial droop, speech deficit - Skin Skin exam: Present: dry, intact Internal Medicine: Result - Labs CBC & Chem 7: 06/08/17 03:14 06/08/17 03:14 - ABG Interpretation ABG results: PT/INR, D-dimer PT 11.2 Seconds (9.4-12.1) 06/08/17 03:14 Consult Discharge Plan - Plan Referrals: Clarita Perdue MD [Primary Care Provider] -
[2017-06-11] MEDS ORDERED: *HR* Heparin 10,000 UNIT/10 ML VIAL ONE (11:24)
[2017-06-11] MEDS ORDERED: Heparin 1,000 UNITS/500 mL 500 ML ONE (11:24)
[2017-06-11] MEDS ORDERED: 0.9 % Sodium Chloride 1,000 ML ONE ×2 (11:24→11:34)
[2017-06-11] MEDS ORDERED: Nitroglycerin 1,000 MCG/10 ML VIAL IV ONE (11:25)
[2017-06-11] MEDS ORDERED: ISOVUE-370 200 ML INFUS..BTL IV ONE (11:25)
--- NOTE | 2017-06-11 11:28 | Pre-Sedation Evaluation ---
Pre-sedation evaluation - Pre-sedation checklist Date of procedure: 06/11/17 Procedure: [facility] Recent Vitals: Last Vital Signs Temp 98.2 F 06/11/17 10:44 Pulse 65 06/11/17 10:44 Resp 18 06/11/17 10:44 BP 121/69 06/11/17 10:44 Pulse Ox 93 06/11/17 10:44 H&P (including ROS) documented in medical record: Yes Previous reaction to sedatives/anesthetics: No Dietary Status: No solid food in preceding 4 hrs and no liquid in preceding 2 hrs Airway Assessment: Patient can open mouth completely, TMJ function normal, Micrognathia (under-bite, receding chin) absent, Neck with adequate range of motion Dentition: No loose teeth or bridges Possible difficult airway: No ASA Classification *see protocol: CLASS II-Mild systemic disease Plan of Care: Pt appropriate candidate for procedure/moderate/conscious sedation , Risks/benefits of procedure/sedation discussed w/ patient/family
[2017-06-11] MEDS ORDERED: *HR* FentaNYL (PF) 100 MCG/2 ML VIAL ONE (11:32)
--- NOTE | 2017-06-11 12:24 | Invasive Diagnostic Lab Proc ---
Name: Elizabeth Bingham Date of Study: 06/11/2017 Date: 1965 Ht: 61.8in Medical Record#: [id number] Age: 52 Wt: 227.08lb Gender: Female BSA: 2.01 Order #: [id number] BMI: 41.79 Physicians Procedure Physician: Mary Carmen Gabriel MD, FACC Referring MD: Referring MD: Staff Name Position Time In Stacy Jiang RN Monitor 11:40 AM Jorge L Padilla RN [employer] Retailer Sales Consultant 11:40 AM Brooke Asher RT (R) Scrub 11:40 AM Indications Indication Abnormal Test - Stress Procedures Performed Procedure L HRT ARTERY/VENTRICLE ANGIO Pre-Procedure Checklist Informed consent is complete signed and on chart. H&P is on chart. ID band is on and ID verified with patient. Patient NPO for procedure The procedure was described for the patient and questions were answered. Blood Pressure: 153/75 ECG is on chart. Rhythm: NSR Plan of Care Patient will tolerate the procedure without complications. Adequate level of comfort will be maintained. Hemodynamics will remain stable Patient will recover from procedure without complications. Respiratory function will be maintained. Cardiac rhythm will remain stable. Patient temperature will be maintained. Patient and/or family have verbalized understanding of the procedure. Patient Education Chief Complaint/Reason for Test: Cardiac Cath Developmental Category: Adult (18-64 years) Developmentally Appropriate for Age: Yes Learning Barriers: None Education Needs: Procedure Education Method: Verbal Information Taught: Cardiac Cath Educational Evaluation: Able to repeat information Intravenous Access Time IV Size Location DC'd Fluid/Drip Rate Units RN 11:30 AM 20g 1 /" Patent On Arrival Rt Arm 0.9NaCl 25 ml/hr Jorge L Padilla RN Allergies SULFA,MORPHINE Cyclobenzaprine Hydrochlorid SULFA DRUGS SULFA Sulfa (Sulfonamide Antibiotics) SULFA (sulfonamide) prednisone Cyclobenzaprine diazepam quetiapine Vital Signs Time BP (mmHg) HR (bpm) O2 Sat. RR (bpm) LOC 11:43 AM / % 5 = Fully awake and oriented or at pre-proc level 11:43 AM / % 4 = Oriented but drowsy 11:39 AM 153 / 75 60 99 % 14 11:43 AM 140 / 71 59 100 % 15 11:48 AM 152 / 70 70 98 % 15 11:53 AM 143 / 74 73 98 % 16 Procedural Medications Time Medication Dose Units Method Given By 11:43 AM Oxygen 2 L/min nasal cannula Jorge L Padilla RN 11:43 AM Fentanyl 25 mcg Intravenous Jorge L Padilla RN 11:44 AM Benadryl 25 mg Intravenous Jorge L Padilla RN 11:44 AM Lidocaine 2% 18 ml Subcutaneous Mary Carmen Gabriel MD, [facility] ASA Classification: CLASS II- Mild systemic disease (i.e. well-controlled diabetes, hypertension, asthma, cigarette smoking) Jagdish Score Preprocedure Postprocedure Activity 2- Moves 4 extremities sustained head lift Activity 2- Moves 4 extremities sustained head lift Circulation 2- SBP +/= 20 points of pre-anesthetic level Circulation 2- SBP +/= 20 points of pre-anesthetic level Consciousness 2- Awake and alert oriented x 3 Consciousness 2- Awake and alert oriented x 3 O2 Saturation 2- Able to maintain O2 satruation of 92% on room air O2 Saturation 2- Able to maintain O2 satruation of 92% on room air Respiratory 2- Able to deep breathe and cough well Respiratory 2- Able to deep breathe and cough well Total Score 10 Total Score 10 Contrast Agent: Isovue Diagnostic Contrast: 46 ml Total Contrast: 46 ml Fluoro Dose: 213 mGy Procedure Log Time Note Enter By 11:30 AM Sign in performed according to hospital policy. scoates 11:30 AM Pt arrived to medical lab tech instructor 2 at 11:30 scoates 11:30 AM Physician arrived 11:30 scoates 11:30 AM Meet and greet completed scoates 11:31 AM Procedure start 11:31 scoates 11:31 AM Procedure start 11:31 scoates 11:37 AM Vitals capture started with the following parameters, Patient=Adult, Interval=5 min, Initial Fnwqcerv=170 mmHg, Deflation Rate=5 mmHg, Cuff placed on Right Arm 11:39 AM HR=60 bpm, JYGI=286/75 mmhg, SpO2=99.0 %, Resp=14 B/min 11:40 AM Stacy Jiang RN Position: Monitor Time in: 11:40 scoates 11:40 AM Jorge L Padilla RN Position: [employer] Retailer Sales Consultant Time in: 11:40 scoates 11:40 AM Brooke Asher RT (R) Position: Scrub Time in: 11:40 scoates 11:40 AM Patient charges- Angio tray pack, Navilyst 3mm J, Pulse Oximetry and ACIST tubing and transducer scoates 11: AM CathStat 11: AM Pressure channel 1 zeroed. 11:43 AM Hair removed from procedure site in procedure lab using clippers. Bilateral groin prepped with Chloraprep by Stacy Jiang RN, then patient was draped. Skin intact. scoates : AM Time: Oxygen on at 2 L/min per nasal cannula by Jorge L Padilla RN scoates : AM Time: Patient comfortable and pain free: Yes scoates 11: AM HR=59 bpm, QKPO=279/71 mmhg, TcX3=234.0 %, Resp=15 B/min, Comment=nsr AM Time: LOC: 5 = Fully awake and oriented or at pre-proc level scoates : AM Time: : Fentanyl 25 mcg Intravenous Given by Jorge L Padilla RN scoates : AM Time: :44 Benadryl 25 mg Intravenous Given by Jorge L Padilla RN scoates 11:44 AM Clinical Presentation: Unstable angina scoates 11:44 AM Time out performed according to hospital policy scoates : AM Time: 18 ml Lidocaine 2% to right groin Subcutaneous Given by Mary Carmen Gabriel MD, [facility] scoates 11:44 AM Access obtained by percutaneous puncture. 5Fr 10cm Terumo Sonoita sheath placed in right Femoral artery. [id number] scoates 11:45 AM Case Delayed No, inpatient scoates 11:46 AM ASA Class CLASS II- Mild systemic disease (i.e. well-controlled diabetes, hypertension, asthma, cigarette smoking) scoates 11:46 AM 5Fr FL 4 catheter inserted over the wire [facility] scoates 11:48 AM LCA angiography performed in multiple views. scoates 11:48 AM Catheter removed scoates 11:48 AM HR=70 bpm, ZSPS=566/70 mmhg, SpO2=98.0 %, Resp=15 B/min, Comment=nsr 11:49 AM 5Fr FR 4 catheter inserted over the wire [facility] scoates 11:49 AM RCA angiography performed in multiple views. scoates 11:50 AM Catheter removed scoates 11:50 AM 5Fr Pigtail catheter inserted over the wire [facility] scoates 11:51 AM Pressure channel 1 zero failed. 11:51 AM Pressure channel 1 zero failed. 11:52 AM Pressure channel 1 zeroed. 11:52 AM Recorded Pressure: LV, HR=79, Condition=Condition 1 (Left Ventricle) LV 102/7/9 11:52 AM Recorded Pressure: LV, Ao, HR=78, Condition=Condition 1 (Left Ventricle) LV 95/16/23, (Aorta) Ao 101/51/85 11:53 AM HR=73 bpm, OKWY=491/74 mmhg, SpO2=98.0 %, Resp=16 B/min 11:53 AM Catheter selectively placed in left ventricle scoates 11:54 AM Bolus angiogram of left Ventricle complete: 8 ml/sec for a total of 24 mls scoates 11:54 AM Coronary Dominance: right scoates 11:54 AM Catheter removed scoates 11:54 AM Bolus angiogram of right Femoral complete: 4 ml/sec for a total of 7 mls scoates 11:56 AM Procedure completed at 11:56 scoates 11:56 AM Did you address GLENIS flow and Dominance? Yes scoates 11:56 AM Sign out completed: Radiation Dose 213 mGy Fluoro Time: 1.2 Isovue 370 - 200ml contrast 46 ml given by Mary Carmen Gabriel MD, [facility]. Complications: NoneCardiac Rehab Consult needed: NoConfirmed administered medications: Yes scoates 11:57 AM Isovue 370 - 200ml,1 Bottle(s) used. scoates 11:57 AM Arterial sheath pulled, Mynx closure device used and was Successful [id number] S/N. scoates 11:57 AM Estimated Blood Loss: less than 20cc scoates 11:57 AM Post ECG NSR scoates 11:57 AM Post Blood Pressure 143/74 scoates 11:58 AM 11:58 Post Pulses Bilateral DP & PT 1+ scoates 11:58 AM Information taught Cardiac Cath and Mynx scoates 11:58 AM Education needs Plan of Care, Procedure, and Responsibilities of Patient in Care scoates 11:58 AM Learning barriers :None scoates 11:58 AM Education Methods Verbal scoates 11:58 AM Education evaluation Able to repeat information scoates 11:58 AM Site status No bleeding/hematoma - Rt Groin as reported by Brooke Asher RT (R) at 11:58 scoates 11:58 AM Time: 11:43 Patient comfortable and pain free: Yes scoates 11:59 AM Time: 11:43LOC: 4 = Oriented but drowsy scoates 11:59 AM Opsite applied scoates 12:00 PM Vitals capture stopped. 12:04 PM Report given to Candice EASON Pt taken to [facility] Room #25. 12:03 scoates 12:04 PM Plavix, Effient or Brilinta given No scoates 12:04 PM Delay to floor No scoates 12:04 PM Patient out of room: 12:04 scoates 12:06 PM Family placed in not present at this time, pt doesnt want us to call anyone scoates 12:06 PM Complications: None scoates 12:07 PM Fluoro Time: 1.2 scoates 12:07 PM Isovue 370 - 200ml contrast 46 ml given by Mary Carmen Gabriel MD, FAC. scoates Complications Complication None None Hemodynamics Pressures Site Systolic/A Wave Diastolic/V Wave Mean LV 102 7 9 LV 95 16 23 AO 101 51 85 Post Procedure Information Blood Pressure: 143/74 mmHg Rhythm: NSR Post procedural instructions were given Closure Device Time Device Success/Fail 06/11/2017 12:10:00 PM MynxGrip Successful Site Checks Time Location Status Staff Sheath In? Note 11:58 AM Rt Groin No bleeding/hematoma Brooke Asher RT (R) Pulses Time Site Pre-Procedure Post-Procedure Note 06/11/2017 11:22:00 AM Bilateral DP & PT 1+ 06/11/2017 11:22:00 AM Bilateral radial 2+ 11:58:00 AM Bilateral DP & PT 1+ Updated by Stacy Mary RN on 06/11/2017 12:15:16 PM electronically signed on 06/11/2017 12:16:00 PM with status of Final
--- NOTE | 2017-06-11 13:45 | Event Note ---
Date of Encounter: 06/11/17 Time of Encounter: 13:45 - Cardiology Event Note Per Dr. Sonia Gabriel, normal coronary angiogram again. Recs to evaluate noncardiac causes of CP. Will s/o, f/u with PCP.
--- NOTE | 2017-06-11 18:33 | Electrocardiograph Report ---
[address] [address] Test Date: 2017-06-11 Pat Name: Elizabeth Bingham Department: 114 Room: [facility] Gender: F Wide Area Network Administrator: [id number] : 1965 Requested By: Griffin Burrell Order Number: [id number] Reading MD: Mary Carmen Gabriel Measurements Intervals [place] Rate: 63 P: 31 NV: 168 QRS: 5 QRSD: 94 T: 5 QT: 444 QTc: 451 Interpretive Statements SINUS RHYTHM Electronically Signed On 06-11-2017 18:32:01 EST by Mary Carmen Gabriel
[2017-06-11] MEDS: *HR* HYDROcodone/Acet 5/325 mg TABLET PO PRN (21:26)
[2017-06-11] MEDS: traZODone 50 MG TABLET PO SCH (21:26)
[2017-06-11] MEDS: hydrOXYzine pamoate 25 MG CAPSULE PO SCH (21:26)
[2017-06-11] MEDS: tiZANidine 4 MG TABLET PO PRN (22:24)
[2017-06-12] MEDS: Aspirin Enteric Coated 81 MG Tablet PO SCH (07:26)
[2017-06-12] MEDS: Spironolactone 25 MG TABLET PO SCH (07:26)
[2017-06-12] MEDS: *HR* HYDROcodone/Acet 5/325 mg TABLET PO PRN ×3 (07:26→20:02)
[2017-06-12] MEDS: Furosemide 40 MG TABLET PO SCH (07:26)
[2017-06-12 15:09] VITALS: BP 123/80
[2017-06-12 15:44] LABS: % Iron Saturation 7 % (15-50); Ferritin 18 ng/ml (10-120); Iron 29 mcg/dL (50-170); Transferrin 290 mg/dL (203-362)
--- NOTE | 2017-06-12 15:52 | Discharge Summary ---
<Chucky Cronin - Last Filed: 06/12/17 15:50> Date of Encounter: 06/12/17 Time of Encounter: 15:50 - Discharge Diagnosis (1) Chest pain Priority: Primary Status: Acute Qualifiers: Chest pain type: unspecified Qualified Code(s): R07.9 - Chest pain, unspecified (2) DVT prophylaxis Priority: Secondary Status: Acute (3) Schizoaffective disorder Priority: Secondary Status: Chronic Qualifiers: Schizoaffective disorder type: depressive Qualified Code(s): F25.1 - Schizoaffective disorder, depressive type (4) Anxiety disorder Priority: Secondary Status: Chronic Qualifiers: Anxiety disorder type: generalized anxiety disorder Qualified Code(s): F41.1 - Generalized anxiety disorder (5) COPD (chronic obstructive pulmonary disease) Priority: Secondary Status: Chronic Qualifiers: COPD type: emphysema Emphysema type: centrilobular Qualified Code(s): J43.2 - Centrilobular emphysema (6) Paroxysmal A-fib Priority: Secondary Status: Chronic (7) Abnormal nuclear stress test Priority: Secondary Status: Acute - Discharge Medications Prescriptions: Aspirin Enteric Coated [Aspirin EC] 81 mg PO DAILY #30 tablet. Atorvastatin [Lipitor] 40 mg PO HS #30 tablet Home Medications: Montelukast [Singulair] 10 mg PO DAILY 04/17/15 [History] hydrOXYzine HCl [Hydroxyzine HCl] 50 mg PO HS 04/17/15 [History] Albuterol Sulfate [Proair Hfa] 2 puff IH Q4H PRN 11/30/15 [History] Escitalopram [Lexapro] 20 mg PO DAILY 11/30/15 [History] TraZODone 100 mg PO HS 11/30/15 [History] Ergocalciferol (VITAMIN D2) [Vitamin D2] 50,000 unit PO TU 06/07/17 [History] Furosemide [Lasix] 40 mg PO DAILY 06/07/17 [History] Lansoprazole [Prevacid] 30 mg PO BID 06/07/17 [History] Spironolactone [Aldactone] 25 mg PO DAILY 06/07/17 [History] Tizanidine HCl 4 mg PO TID PRN 06/07/17 [History] Aspirin Enteric Coated [Aspirin EC] 81 mg PO DAILY #30 tablet. 06/12/17 [Rx] Atorvastatin [Lipitor] 40 mg PO HS #30 tablet 06/12/17 [Rx] Allergies/Adverse Reactions: 3 Allergy/AdvReac Type Severity Reaction Status Date / Time Cyclobenzaprine Allergy See Verified 11/30/15 10:36 Comments diazepam Allergy Itching Verified 01/02/17 16:13 prednisone Allergy See Verified 11/30/15 10:36 Comments quetiapine Allergy See Verified 11/30/15 10:36 Comments Sulfa (Sulfonamide Allergy See Verified 11/30/15 10:36 Antibiotics) Comments Procedures/tests Complete & Pending: Procedures Performed prior 72 hours Category Date Time Status CL Cardiac Catheterization [CL] Routine City Engineer 06/11/17 09:57 Completed EKG [ECG 12 lead ECG] [ECG] Stat Y 06/11/17 00:44 Completed Date of admission: 06/07/17 20:20 Primary care physician: Clarita Perdue MD Consults: 06/10/17 10:04 Consult to Cardiology [CONS] Routine Comment: Consulting Provider: Cardiology [place] Reason for Consult: chest pain with abnormal stress test Time Notified: 14:00 Call Completed: Yes Discharging clinician: Chucky Cronin Anticipated date of discharge: 06/12/17 - Patient Status Disposition: Home, Self-Care Condition: Good Functional capacity at discharge: independent ambulation Overall status at discharge: patient is progressing back to baseline - Discharge Instructions Follow Up With: Clarita Perdue MD [Primary Care Provider] - (Web request submitted.) Additional Instructions: Follow-up with the primary care provider within one week of discharge. Please follow-up with your doctor regarding your anemia screening colonoscopy is recommended for your age. Return to the emergency department immediately if you develop unresolving chest pain, shortness of breath. - Diet and Activity Activity: increase activity as tolerated Diet: low fat, low cholesterol Hospital course: Ms. Bingham is a 52 year old female past medical history of arthritis, asthma, atrial fibrillation, CHF, COPD, Gerd, hyperlipidemia, hypertension, migraines, anxiety, bipolar, depression. Patient arrived to the urgency department on with chief complaint of chest pain after getting her echo done, as ordered by her primary care provider. She stated the pain was substantial and radiated to her left arm and jaw. He has had catheterization in the past that were negative. She was admitted for chest pain rule out. Troponinx3 negative. X- ray showed no acute findings. Consult cardiology was made. She had pharmacologic stress test done that showed possible region of ischemia inferiorly. Patient underwent cardiac catheterization thereafter as per cardiology. Her heart was normal. Echocardiogram on 06/07/17 showed LVEF of 60- 65%, no significant valvular dysfunction, no pulmonary HTN, mild LV diastolic dyfunction. Archaeology has signed off after her cardiac catheterization. She will need either workup for noncardiac chest pain by her PCP. Furthermore, patient's hemoglobin has dropped since her admission, and she also shows a microcytic anemia. She states that she has never had a screening colonoscopy before which we recommend. Furthermore B-12, folate, iron profile, ferritin were ordered, and these labs should be followed up on during follow-up appointment with her primary care provider. Patient was throughout the course of her hospitalization, and she was discharged home and stable condition. - Time Spent with Patient Total time spent providing and/or coordinating discharge services: Greater than 30 minutes - Constitutional Vitals: Temp Pulse Resp BP Pulse Ox 98.5 F 75 18 123/80 96 06/12/17 15:07 06/12/17 15:07 06/12/17 15:07 06/12/17 15:07 06/12/17 15:07 General appearance: Present: A&O X 3, morbidly obese, pleasant, no acute distress, answers questions appropriately - Head Head exam: Present: atraumatic, normocephalic - Neck Neck exam general surgery: Present: supple, trachea midline - Respiratory Respiratory exam: Present: CTAB - Cardiovascular Cardiovascular exam: Present: +S1, +S2 Additional comments: +2/6 systolic murmur heard best at left upper sternal border. - GI/Abdominal GI/Abdominal exam: Present: distended, normal bowel sounds, soft. Absent: tenderness Additional comments: Mild right lower quadrant tenderness to palpation. - Extremities Exam Extremities exam: Absent: cyanotic, pedal edema - Psychiatric Psychiatric exam: Present: normal affect, normal mood - Skin Skin exam: Present: intact <Panfilo Mary - Last Filed: 06/12/17 19:01> Date of Encounter: 06/12/17 Procedures/tests Complete & Pending: Procedures Performed prior 72 hours Category Date Time Status CL Cardiac Catheterization [CL] Routine City Engineer 06/11/17 09:57 Completed EKG [ECG 12 lead ECG] [ECG] Stat Y 06/11/17 00:44 Completed Date of admission: 06/07/17 20:20 Primary care physician: Clarita Perdue MD Consults: 06/10/17 10:04 Consult to Cardiology [CONS] Routine Comment: Consulting Provider: Cardiology [place] Reason for Consult: chest pain with abnormal stress test Time Notified: 14:00 Call Completed: Yes Hospital course: Ms. Bingham is a 52 year old female - Time Spent with Patient Total time spent providing and/or coordinating discharge services: - Constitutional Vitals: Temp Pulse Resp BP Pulse Ox 98.5 F 75 18 123/80 96 06/12/17 15:07 06/12/17 15:07 06/12/17 15:07 06/12/17 15:07 06/12/17 15:07 - Attending Attestation I examined this patient and my medical decision-making was reviewed with the Resident Physician. I agree with the documented findings, disposition and treatment plan as described except to the extent set forth below.
[2017-06-12 16:10] LABS: Folate 9.4 ng/mL (3.0-16.0)
== END 2017-06-12 21:50 | disposition home or self-care (01) ==
LOC: EMEROO 14:01 → 3NENU 14:01
PROVIDERS: ADMIT Internal Medicine; ATTEND Internal Medicine

== ENCOUNTER 2018-02-12 08:37 | Observation (INO) ==
--- NOTE | 2018-02-12 09:25 | Emergency Department Note ---
Disposition Referrals: Clarita Perdue MD [Primary Care Provider] - Forms: ED Satisfaction Letter General Adult HPI - General Chief complaint: ED Dizziness Stated complaint: "headache, N/T, dizzy" Time Seen by Provider: 02/12/18 09:05 Source: patient Limitations: no limitations - History of Present Illness Pain Scale: 6 - Related Data Home Medications Medication Instructions Recorded Confirmed hydrOXYzine HCl [Hydroxyzine HCl] 50 mg PO HS 04/17/15 01/28/18 Albuterol Sulfate [Proair Hfa] 2 puff IH Q6H PRN 11/30/15 01/28/18 Escitalopram [Lexapro] 20 mg PO DAILY 11/30/15 01/28/18 Ergocalciferol (VITAMIN D2) 50,000 unit PO TU 06/07/17 01/28/18 [Vitamin D2] Lansoprazole [Prevacid] 30 mg PO DAILY 06/07/17 01/28/18 Spironolactone [Aldactone] 25 mg PO DAILY PRN 06/07/17 01/28/18 Tizanidine HCl 4 mg PO TID PRN 06/07/17 01/28/18 Gabapentin [Neurontin] 600 mg PO BID 11/08/17 01/28/18 Famotidine [Pepcid] 40 mg PO HS 12/23/17 01/28/18 Furosemide [Lasix] 20 mg PO DAILY PRN 12/23/17 01/28/18 Ipratropium/Albuterol Neb [Duoneb] 3 ml IH Q6HR PRN 12/23/17 01/28/18 Lisinopril [Zestril] 10 mg PO DAILY 12/23/17 01/28/18 Trazodone HCl 100 mg PO HS 12/23/17 01/28/18 Previous Rx's Medication Instructions Recorded Aspirin Enteric Coated [Aspirin EC] 81 mg PO DAILY #30 tablet. 06/12/17 Atorvastatin [Lipitor] 40 mg PO HS #30 tablet 06/12/17 Ondansetron HCl [Zofran] 4 mg PO Q8HR PRN #10 tab 01/17/18 Sucralfate [Carafate] 1 gm PO QIDAC #28 tablet 01/17/18 Allergies Allergy/AdvReac Type Severity Reaction Status Date / Time Cyclobenzaprine Allergy See Verified 02/12/18 08:42 Comments diazepam Allergy Itching Verified 02/12/18 08:42 Sulfa (Sulfonamide Allergy See Verified 02/12/18 08:42 Antibiotics) Comments amitriptyline AdvReac See Verified 02/12/18 08:42 Comments methocarbamol AdvReac Irritable Verified 02/12/18 08:42 Oxaprozin [From Daypro] AdvReac Irritable Verified 02/12/18 08:42 quetiapine [From Seroquel] AdvReac Nausea Verified 02/12/18 08:42 ziprasidone [From Geodon] AdvReac See Verified 02/12/18 08:42 Comments Past Medical History - Past Medical History Medical history: Reports: arthritis, asthma, atrial fibrillation, CHF, COPD, GERD, hyperlipidemia, hypertension, migraine, RA Surgical history: Reports: appendectomy, , cholecystectomy, herniorrhaphy, hysterectomy Psychiatric history: Reports: anxiety, bipolar, depression, prior suicide attempt, schizophrenia MICROFICHE DUPLICATOR history: Reports: no MICROFICHE DUPLICATOR history - Social History Smoking Status: Never smoker Smokeless Tobacco Status: No Alcohol use: Reports: none Drug use: Reports: none Physical Exam - General Limitations: no limitations General appearance: alert, in no apparent distress Course Vital Signs Temperature 97.8 F 02/12/18 08:40 Pulse Rate 62 02/12/18 08:40 Respiratory Rate 18 02/12/18 08:40 Blood Pressure 132/78 02/12/18 08:40 O2 Sat by Pulse Oximetry 98 02/12/18 08:40 Temperature 97.8 F 02/12/18 09:18 Pulse Rate 62 02/12/18 09:18 Respiratory Rate 18 02/12/18 09:18 Blood Pressure 132/78 02/12/18 09:18 O2 Sat by Pulse Oximetry 98 02/12/18 09:18 Oxygen Delivery Oxygen Delivery Room Air
--- NOTE | 2018-02-12 09:25 | Emergency Department Note ---
Disposition Clinical Impression: Expressive aphasia, Right sided weakness Disposition: Home, Self-Care Condition: Good General Adult HPI - General Chief complaint: ED Dizziness Stated complaint: "headache, N/T, dizzy" Time Seen by Provider: 02/12/18 09:05 Source: patient Limitations: no limitations Nursing Notes Reviewed: Yes Vital Signs Reviewed: Yes - History of Present Illness Pain Scale: 6 - Related Data Home Medications Medication Instructions Recorded Confirmed Albuterol Sulfate [Proair Hfa] 2 puff IH Q6H PRN 11/30/15 02/12/18 Escitalopram [Lexapro] 20 mg PO DAILY 11/30/15 02/12/18 Ergocalciferol (VITAMIN D2) 50,000 unit PO TU 06/07/17 02/12/18 [Vitamin D2] Lansoprazole [Prevacid] 30 mg PO DAILY 06/07/17 02/12/18 Spironolactone [Aldactone] 25 mg PO DAILY PRN 06/07/17 02/12/18 Tizanidine HCl 4 mg PO TID PRN 06/07/17 02/12/18 Gabapentin [Neurontin] 600 mg PO BID 11/08/17 02/12/18 Famotidine [Pepcid] 40 mg PO HS 12/23/17 02/12/18 Furosemide [Lasix] 20 mg PO DAILY PRN 12/23/17 02/12/18 Ipratropium/Albuterol Neb [Duoneb] 3 ml IH Q6HR PRN 12/23/17 02/12/18 Lisinopril [Zestril] 10 mg PO DAILY 12/23/17 02/12/18 Trazodone HCl 100 mg PO HS 12/23/17 02/12/18 Apixaban [Eliquis] 5 mg PO BID 02/12/18 02/12/18 Baclofen [Lioresal] 10 mg PO TID 02/12/18 02/12/18 Diltiazem CD (24hr) [Cardizem CD] 120 mg PO DAILY 02/12/18 02/12/18 Fluticasone Propionate Nasal 1 spr NS DAILY 02/12/18 02/12/18 [Flonase] Montelukast [Singulair] 10 mg PO DAILY 02/12/18 02/12/18 Sucralfate [Carafate] 1 gm PO BID 02/12/18 02/12/18 hydrOXYzine HCl [Hydroxyzine HCl] 50 mg PO TID PRN 02/12/18 02/12/18 Previous Rx's Medication Instructions Recorded Aspirin Enteric Coated [Aspirin EC] 81 mg PO DAILY #30 tablet. 06/12/17 Atorvastatin [Lipitor] 40 mg PO HS #30 tablet 06/12/17 Allergies Allergy/AdvReac Type Severity Reaction Status Date / Time Cyclobenzaprine Allergy See Verified 02/12/18 08:42 Comments diazepam Allergy Itching Verified 02/12/18 08:42 Sulfa (Sulfonamide Allergy See Verified 02/12/18 08:42 Antibiotics) Comments amitriptyline AdvReac See Verified 02/12/18 08:42 Comments methocarbamol AdvReac Irritable Verified 02/12/18 08:42 Oxaprozin [From Daypro] AdvReac Irritable Verified 02/12/18 08:42 quetiapine [From Seroquel] AdvReac Nausea Verified 02/12/18 08:42 ziprasidone [From Geodon] AdvReac See Verified 02/12/18 08:42 Comments Past Medical History - Past Medical History Medical history: Reports: arthritis, asthma, atrial fibrillation, CHF, COPD, GERD, hyperlipidemia, hypertension, migraine, RA Surgical history: Reports: appendectomy, , cholecystectomy, herniorrhaphy, hysterectomy Psychiatric history: Reports: anxiety, bipolar, depression, prior suicide attempt, schizophrenia BACTERIOLOGIST FISHERY history: Reports: no BACTERIOLOGIST FISHERY history - Social History Smoking Status: Never smoker Smokeless Tobacco Status: No Alcohol use: Reports: none Drug use: Reports: none Physical Exam - General Limitations: no limitations General appearance: alert, in no apparent distress Course Vital Signs Temperature 97.8 F 02/12/18 08:40 Pulse Rate 62 02/12/18 08:40 Respiratory Rate 18 02/12/18 08:40 Blood Pressure 132/78 02/12/18 08:40 O2 Sat by Pulse Oximetry 98 02/12/18 08:40 Temperature 98.3 F 02/12/18 15:44 Pulse Rate 61 02/12/18 15:44 Respiratory Rate 16 02/12/18 15:44 Blood Pressure 116/60 02/12/18 15:44 O2 Sat by Pulse Oximetry 98 02/12/18 15:44 Oxygen Delivery Oxygen Delivery Room Air Medical Decision Making - MDM Narrative Medical decision making narrative: Chest X-Ray 02/12/18 08:59 IMPRESSION: No active cardiopulmonary disease D/ / Juan Costello MD / Juan Costello MD Interpreting Provider: Juan Costello MD Angiography CT 02/12/18 09:26 IMPRESSION: Unremarkable CTA of the head and neck. D/ / Gary Nicole MD / Gary Nicole MD Interpreting Provider: Gary Nicole MD Neck CTA 02/12/18 09:49 IMPRESSION: Unremarkable CTA of the head and neck. D/ / Gary Nicole MD / Gary Nicole MD Interpreting Provider: Gary Nicole MD 1233 hrs.: Admission to for patient. With her symptomatology. Should rule out for stroke. And need for rehabilitation. - Lab Data Result diagrams: 02/12/18 09:44 02/12/18 09:44 Lab Results 02/12/18 02/12/18 02/12/18 Range/Units 09:44 09:44 10:00 WBC 10.3 (4.3-11.1) K/mcL RBC 5.09 H (3.82-4.97) M/mcL Hgb 12.9 (11.5-15.4) g/dL Hct 41.8 (35.3-44.9) % MCV 82.1 L (83.0-100.0) fL MCH 25.3 L (28.0-33.3) pg MCHC 30.9 L (31.6-35.5) g/dL RDW 17.3 H (11.5-14.5) % Plt Count 254 (140-400) K/mcL MPV 9.6 (9.4-12.4) fL Immature Gran % 1.6 (0-4) % Seg Neutrophils % 51.7 % Lymphocytes % 35.2 % Monocytes % 7.2 % Eosinophils % 3.2 % Basophils % 1.1 % Neutrophils # 5.3 (1.6-8.9) K/mcL Lymphocytes # 3.6 (0.6-4.6) K/mcL Monocytes # 0.7 (0.0-1.3) K/mcL Eosinophils # 0.3 (0.0-0.6) K/mcL Basophils # 0.1 (0.0-0.2) K/mcL Sodium 143 (136-145) mEq/L Potassium 3.4 L (3.5-5.1) mEq/L Chloride 106 (98-107) mEq/L Carbon Dioxide 29 (23-29) mEq/L BUN 25 H (6-20) mg/dL Creatinine 1.00 (0.60-1.20) mg/dL Est GFR ( Amer) > 60 (> 60) Est GFR (Non-Af Amer) 58 L (> 60) BUN/Creatinine Ratio 25 (6-26) Glucose 85 (70-105) mg/dL Calculated Osmolality 300 (280-300) Calcium 8.2 L (8.6-10.3) mg/dL Troponin I < 0.03 (< 0.04) ng/mL Urine Color Yellow (Yellow) Urine Clarity Clear (Clear) Urine pH 5.5 (5.0-8.0) pH Units Ur Specific [place] > 1.030 H (1.010-1.025) Urine Protein Negative (Neg-Trace) mg/dL Urine Glucose (UA) Normal (Normal) mg/dL Urine Ketones Negative (Negative) mg/dL Urine Blood Negative (Negative) Urine Nitrite Negative (Negative) Urine Bilirubin Negative (Negative) Urine Urobilinogen Normal (Normal) mg/dL Ur Leukocyte Esterase Small H (Negative) Urine Microscopic RBC 3-5 H (0-3) per hpf Urine Microscopic WBC 5-15 H (0-3) per hpf Ur Squamous Epith Cells Many H (None-Few) per lpf Urine Bacteria None Seen (None-Few) per hpf Hyaline Casts None Seen (None-Few) per lpf Ur Culture Indicated? NO. A (NO) Critical Care Time Critical Care Time: Yes Total Critical Care Time: 30 Attestation: Excluding any separately billable procedures. Attestation Statement - Attestation Attestation: This documentation is done with the assistance of Dragon dictation. Despite efforts made to ensure accuracy, there may be inaccuracies in fisheries manager or spelling and typographical errors. I examined this patient and my medical decision-making was reviewed with the Resident Physician. I agree with the documented findings, disposition and treatment plan as described except to the extent set forth below. Patient seen and evaluated today by Dr. Sahni and myself, I agree with his evaluation and management plan, I supervised the care of the patient's stay. Patient presents today after having almost one month of symptoms with having some headache on the right side also some which she describes as some weakness with everything pulling to that side. And difficulty finding words. She has recently been diagnosed with atrial fibrillation has a loop recorder on, sees Dr. Gabriel for cardiology. She also has been started on liquids. Her primary doctor wanted her to get a CT in the outpatient because her grandmother immediately's she has presented here. She has no focal deficits on exam. She might have a little difficulty with finding words. Were going ahead and do a CT on her head lab work and she will need admission.
[2018-02-12] MEDS ORDERED: Isovue-370 500 ML INFUS..BTL IV ONE ×2 (09:26→09:49)
--- NOTE | 2018-02-12 09:29 | Emergency Department Note ---
Disposition Clinical Impression: Expressive aphasia, Right sided weakness Disposition: Home, Self-Care Condition: Good Referrals: Clarita Perdue MD [Primary Care Provider] - Forms: ED Satisfaction Letter General Adult HPI - General Chief complaint: ED Dizziness Stated complaint: "headache, N/T, dizzy" Time Seen by Provider: 02/12/18 09:05 Source: patient Limitations: no limitations Nursing Notes Reviewed: Yes Vital Signs Reviewed: Yes - History of Present Illness HPI Narrative: The patient is a 52 year old female with a history of HTN, HLD, recent diagnosis of atrial fibrillation that presents to the ED for stroke like symptoms. Per patient's report, for the past month she has had progressively worsening right-sided headache, right-sided facial paresthesia, and feels like her face is drooping. Patient has also been having difficulty finding her words , and says she tends to repeat herself a bunch. She also describes syncopal episodes where she feels tired and then falls asleep and says she is unable to stay away. She has also been having episodes of lightheadedness that come on randomly with associated nuasea. Patient says she has also noticed that she tends to veer to her right-side when ambulating. Patient was recently found to be in atrial fibrillation and was started on eliquis 2 weeks ago. Patient denies any fever, chills, chest pain, shortness of breath, abdominal pain, vomiting, changes in bowel habits, and urinary complaints. Patient is in the process of getting an outpatient Head CT scheduled, but it has yet to be authorized. The history, physical exam, and medical decision making was performed by the medical student either while I was physically present and actively involved or I personally re-performed the exam and medical decision making. I have verified the accuracy of the medical student's documentation with regards to the history, physical exam findings, and medical decision making. 52-year-old female who is in emergency department with concern for difficulty in expressing her speech, right-sided weakness, difficulty walking. Has not had a head CT yet. Patient is on Eliquis as well as aspirin. No new symptoms over the last couple days. Pain Scale: 6 - Related Data Home Medications Medication Instructions Recorded Confirmed Albuterol Sulfate [Proair Hfa] 2 puff IH Q6H PRN 11/30/15 02/12/18 Escitalopram [Lexapro] 20 mg PO DAILY 11/30/15 02/12/18 Ergocalciferol (VITAMIN D2) 50,000 unit PO TU 06/07/17 02/12/18 [Vitamin D2] Lansoprazole [Prevacid] 30 mg PO DAILY 06/07/17 02/12/18 Spironolactone [Aldactone] 25 mg PO DAILY PRN 06/07/17 02/12/18 Tizanidine HCl 4 mg PO TID PRN 06/07/17 02/12/18 Gabapentin [Neurontin] 600 mg PO BID 11/08/17 02/12/18 Famotidine [Pepcid] 40 mg PO HS 12/23/17 02/12/18 Furosemide [Lasix] 20 mg PO DAILY PRN 12/23/17 02/12/18 Ipratropium/Albuterol Neb [Duoneb] 3 ml IH Q6HR PRN 12/23/17 02/12/18 Lisinopril [Zestril] 10 mg PO DAILY 12/23/17 02/12/18 Trazodone HCl 100 mg PO HS 12/23/17 02/12/18 Apixaban [Eliquis] 5 mg PO BID 02/12/18 02/12/18 Baclofen [Lioresal] 10 mg PO TID 02/12/18 02/12/18 Diltiazem CD (24hr) [Cardizem CD] 120 mg PO DAILY 02/12/18 02/12/18 Fluticasone Propionate Nasal 1 spr NS DAILY 02/12/18 02/12/18 [Flonase] Montelukast [Singulair] 10 mg PO DAILY 02/12/18 02/12/18 Sucralfate [Carafate] 1 gm PO BID 02/12/18 02/12/18 hydrOXYzine HCl [Hydroxyzine HCl] 50 mg PO TID PRN 02/12/18 02/12/18 Previous Rx's Medication Instructions Recorded Aspirin Enteric Coated [Aspirin EC] 81 mg PO DAILY #30 tablet. 06/12/17 Atorvastatin [Lipitor] 40 mg PO HS #30 tablet 06/12/17 Allergies Allergy/AdvReac Type Severity Reaction Status Date / Time Cyclobenzaprine Allergy See Verified 02/12/18 08:42 Comments diazepam Allergy Itching Verified 02/12/18 08:42 Sulfa (Sulfonamide Allergy See Verified 02/12/18 08:42 Antibiotics) Comments amitriptyline AdvReac See Verified 02/12/18 08:42 Comments methocarbamol AdvReac Irritable Verified 02/12/18 08:42 Oxaprozin [From Daypro] AdvReac Irritable Verified 02/12/18 08:42 quetiapine [From Seroquel] AdvReac Nausea Verified 02/12/18 08:42 ziprasidone [From Geodon] AdvReac See Verified 02/12/18 08:42 Comments All systems ED: reviewed and negative except as stated. Review of Systems: As Per HPI Constitutional: Denies: fever, chills Eyes: Denies: eye pain, vision change ENT ED: Denies: throat pain, congestion Cardiovascular: Reports: palpitations, syncope. Denies: chest pain Respiratory: Denies: dyspnea Gastrointestinal: Reports: nausea. Denies: abdominal pain, vomiting Genitourinary: Denies: urgency, dysuria, frequency, hematuria Musculoskeletal: Denies: back pain, neck pain Neurological: Reports: headache, paresthesias. Denies: weakness, numbness Past Medical History - Past Medical History Medical history: Reports: arthritis, asthma, atrial fibrillation, CHF, COPD, GERD, hyperlipidemia, hypertension, migraine, RA Surgical history: Reports: appendectomy, , cholecystectomy, herniorrhaphy, hysterectomy Psychiatric history: Reports: anxiety, bipolar, depression, prior suicide attempt, schizophrenia ATTENDANT SALES history: Reports: no ATTENDANT SALES history - Social History Smoking Status: Never smoker Smokeless Tobacco Status: No Alcohol use: Reports: none Drug use: Reports: none Physical Exam - General Limitations: no limitations General appearance: alert, in no apparent distress - Head Head exam: atraumatic, normocephalic - Eye Eye exam: Present: normal appearance, PERRL, EOMI, scleral icterus, conjunctival injection. Absent: nystagmus - ENT ENT exam: normal exam, normal oropharynx, mucous membranes moist - Neck Neck exam: Present: normal inspection, full ROM, trachea midline. Absent: meningismus - Chest Chest inspection: Present: normal inspection, symmetric chest wall rise - Respiratory Respiratory exam: Present: normal lung sounds bilaterally. Absent: respiratory distress, wheezes - Cardiovascular Cardiovascular exam: Present: regular rate, normal rhythm, normal heart sounds, systolic murmur (1/6 systolic murmur). Absent: diastolic murmur, rubs, gallop - Expanded Cardiovascular Exam Peripheral pulses: 2+: radial (R), radial (L), dorsalis pedis (R), dorsalis pedis (L) - Abdominal Exam Abdominal exam: Present: soft, Non-Tender. Absent: distention, guarding, rebound, rigidity - Extremities Exam Extremities exam: Present: normal inspection, full ROM. Absent: pedal edema - Back Exam Back exam: Present: full ROM - Neurological Exam Neurological exam: Present: alert, oriented X3, CN II-XII intact, other ( sensation intact and equal bilaterally in the face, upper, and lower extremities ) - Expanded Neurological Exam Speech: Present: expressive aphasia (mild). Absent: fluid speech Cranial nerves: EOM function (II, III, IV, ): Normal Cerebellar function: finger to nose: Normal, heel to rivas: Normal Cerebellar function: normal gait Motor strength - LUE: 5/5 Motor strength - RUE: 5/5 Motor strength - LLE: 5/5 Motor strength - RLE: 5/5 - Psychiatric Psychiatric exam: Present: normal affect, normal mood, depressed - Skin Skin exam: Present: warm, dry, intact, normal color. Absent: rash, cyanosis Course Vital Signs Temperature 97.8 F 02/12/18 08:40 Pulse Rate 62 02/12/18 08:40 Respiratory Rate 18 02/12/18 08:40 Blood Pressure 132/78 02/12/18 08:40 O2 Sat by Pulse Oximetry 98 02/12/18 08:40 Temperature 97.8 F 02/12/18 09:18 Pulse Rate 58 02/12/18 13:15 Respiratory Rate 14 02/12/18 13:15 Blood Pressure 102/48 02/12/18 13:15 O2 Sat by Pulse Oximetry 98 02/12/18 13:15 Oxygen Delivery Oxygen Delivery Room Air Medical Decision Making - MDM Narrative Medical decision making narrative: 52-year-old female presents emergency department with concern for mild expressive aphasia as well as right-sided extremity weakness. On neurologic exam, only neurologic deficit is able to be identified as expressive aphasia. GCS 15. Patient currently out of the window for TPA. Patient has not had a head CT. She has a lot of risk factors for stroke. We will obtain CT scan of the head without contrast. We will also obtain CTA of the head and neck as well. Plan for admission patient for further stroke evaluation. Patient also has headache. We will treat with Reglan and Benadryl as well as fluids. Chest x-ray did not reveal any active cardiopulmonary disease per radiology. CTA of the head and neck as well as CT without contrast of the head reveal any abnormality per radiology as well. Patient's headache went to a 5 out of 10 after migraine cocktail. We added Toradol. We discussed admission with the patient for further workup and evaluation for her neurologic symptoms. Patient will plan for admission. I spoke with the hospitalist who agreed to accept the patient for admission. Patient not in any acute distress and was hemodynamic was stable at the time. All other labs were unremarkable. Chest X-Ray 02/12/18 08:59 IMPRESSION: No active cardiopulmonary disease D/ / Juan Costello MD / Juan Costello MD Interpreting Provider: Juan Costello MD Angiography CT 02/12/18 09:26 IMPRESSION: Unremarkable CTA of the head and neck. D/ / Gary Nicole MD / Gary Nicole MD Interpreting Provider: Gary Nicole MD Neck CTA 02/12/18 09:49 IMPRESSION: Unremarkable CTA of the head and neck. D/ / Gary Nicole MD / Gary Nicole MD Interpreting Provider: Gary Nicole MD - Lab Data Result diagrams: 02/12/18 09:44 02/12/18 09:44 Lab Results 02/12/18 02/12/18 02/12/18 Range/Units 09:44 09:44 10:00 WBC 10.3 (4.3-11.1) K/mcL RBC 5.09 H (3.82-4.97) M/mcL Hgb 12.9 (11.5-15.4) g/dL Hct 41.8 (35.3-44.9) % MCV 82.1 L (83.0-100.0) fL MCH 25.3 L (28.0-33.3) pg MCHC 30.9 L (31.6-35.5) g/dL RDW 17.3 H (11.5-14.5) % Plt Count 254 (140-400) K/mcL MPV 9.6 (9.4-12.4) fL Immature Gran % 1.6 (0-4) % Seg Neutrophils % 51.7 % Lymphocytes % 35.2 % Monocytes % 7.2 % Eosinophils % 3.2 % Basophils % 1.1 % Neutrophils # 5.3 (1.6-8.9) K/mcL Lymphocytes # 3.6 (0.6-4.6) K/mcL Monocytes # 0.7 (0.0-1.3) K/mcL Eosinophils # 0.3 (0.0-0.6) K/mcL Basophils # 0.1 (0.0-0.2) K/mcL Sodium 143 (136-145) mEq/L Potassium 3.4 L (3.5-5.1) mEq/L Chloride 106 (98-107) mEq/L Carbon Dioxide 29 (23-29) mEq/L BUN 25 H (6-20) mg/dL Creatinine 1.00 (0.60-1.20) mg/dL Est GFR ( Amer) > 60 (> 60) Est GFR (Non-Af Amer) 58 L (> 60) BUN/Creatinine Ratio 25 (6-26) Glucose 85 (70-105) mg/dL Calculated Osmolality 300 (280-300) Calcium 8.2 L (8.6-10.3) mg/dL Troponin I < 0.03 (< 0.04) ng/mL Urine Color Yellow (Yellow) Urine Clarity Clear (Clear) Urine pH 5.5 (5.0-8.0) pH Units Ur Specific [place] > 1.030 H (1.010-1.025) Urine Protein Negative (Neg-Trace) mg/dL Urine Glucose (UA) Normal (Normal) mg/dL Urine Ketones Negative (Negative) mg/dL Urine Blood Negative (Negative) Urine Nitrite Negative (Negative) Urine Bilirubin Negative (Negative) Urine Urobilinogen Normal (Normal) mg/dL Ur Leukocyte Esterase Small H (Negative) Urine Microscopic RBC 3-5 H (0-3) per hpf Urine Microscopic WBC 5-15 H (0-3) per hpf Ur Squamous Epith Cells Many H (None-Few) per lpf Urine Bacteria None Seen (None-Few) per hpf Hyaline Casts None Seen (None-Few) per lpf Ur Culture Indicated? NO. A (NO) - EKG Data EKG #1 EKG attestation: Yes I reviewed and interpreted this EKG. EKG results narrative: 9:31 Heart rate 54 bpm, normal [place] interval, QRS duration 97 ms, QT 470 ms, QTC 446 ms , normal axis. Sinus bradycardia with a ventricular rate of [address] changes noted.
[2018-02-12] MEDS ORDERED: Metoclopramide 10 MG/2 ML VIAL IVP ONE (09:42)
[2018-02-12] MEDS ORDERED: 0.9 % Sodium Chloride 1,000 ML IVC ONE (09:42)
[2018-02-12 10:01] LABS: Basophils # 0.1 K/mcL (0.0-0.2); Basophils % 1.1 %; Eosinophils # 0.3 K/mcL (0.0-0.6); Eosinophils % 3.2 %; Hematocrit 41.8 % (35.3-44.9); Hemoglobin 12.9 g/dL (11.5-15.4); Immature Granulocytes % 1.6 % (0-4); Lymphocytes # 3.6 K/mcL (0.6-4.6); Lymphocytes % 35.2 %; Mean Corpuscular HGB Conc 30.9 g/dL (31.6-35.5); Mean Corpuscular Hemoglobin 25.3 pg (28.0-33.3); Mean Corpuscular Volume 82.1 fL (83.0-100.0); Mean Platelet Volume 9.6 fL (9.4-12.4); Monocytes # 0.7 K/mcL (0.0-1.3); Monocytes % 7.2 %; Neutrophils # 5.3 K/mcL (1.6-8.9); Platelet Count 254 K/mcL (140-400); Red Blood Count 5.09 M/mcL (3.82-4.97); Red Cell Distribution Width 17.3 % (11.5-14.5); Segmented Neutrophils % 51.7 %
[2018-02-12 10:10] LABS: Bilirubin,Urine Negative (Negative); Blood,Urine Negative (Negative); Clarity,Urine Clear (Clear); Color,Urine Yellow (Yellow); Glucose,Urine (UA) Normal (Normal); Ketones,Urine Negative (Negative); Leukocyte Esterase,Urine Small (Negative); Nitrite,Urine Negative (Negative); PH,Urine 5.5 pH Units (5.0-8.0); Protein,Urine Negative (Neg-Trace); Specific Gravity,Urine > 1.030 (1.010-1.025); Urobilinogen,Urine Normal (Normal)
[2018-02-12 10:11] LABS: Bacteria,Urine None Seen per hpf (None-Few); Hyaline Casts,Urine None Seen per lpf (None-Few); Squamous Epithelial Cell,Urine Many per lpf (None-Few)
[2018-02-12 10:20] LABS: BUN/Creatinine Ratio 25 (6-26); Blood Urea Nitrogen 25 mg/dL (6-20); Calcium 8.2 mg/dL (8.6-10.3); Carbon Dioxide 29 mEq/L (23-29); Chloride 106 mEq/L (98-107); Glucose 85 mg/dL (70-105); Osmolality,Calculated 300 (280-300); Potassium 3.4 mEq/L (3.5-5.1); Sodium 143 mEq/L (136-145); eGFR For Non-African Americans 58 (> 60)
[2018-02-12 10:21] LABS: Troponin I < 0.03 ng/mL (< 0.04)
[2018-02-12] MEDS ORDERED: Naloxone 0.4 MG/ML INJ IVP PRN (13:35)
[2018-02-12] MEDS ORDERED: Ipratropium/Albuterol Neb 3 ML IH PRN (13:36)
[2018-02-12] MEDS ORDERED: Spironolactone 25 MG TABLET PO PRN (13:36)
[2018-02-12] MEDS ORDERED: hydrOXYzine pamoate 25 MG CAPSULE PO PRN (13:36)
[2018-02-12] MEDS ORDERED: tiZANidine 4 MG TABLET PO PRN (13:36)
[2018-02-12] MEDS ORDERED: Furosemide 20 MG TABLET PO PRN (13:36)
[2018-02-12] MEDS ORDERED: Potassium Chloride Elixir 20 MEQ/15 ML UDC PO SCH ×2 (13:45→18:00)
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
[2018-02-12] MEDS ORDERED: Perflutren Lipid Microsphere 1.3 ML in 0.9 % Sodium Chloride 8.7 ML IVP ONE (15:19)
[2018-02-12] MEDS: Baclofen 10 MG TABLET PO SCH ×2 (16:11→19:55)
[2018-02-12] MEDS: Famotidine 20 MG TABLET PO SCH (19:55)
[2018-02-12] MEDS: Gabapentin 300 MG CAPSULE PO SCH (19:55)
[2018-02-12] MEDS: Sucralfate 1 GM TABLET PO SCH (19:55)
[2018-02-12] MEDS: traZODone 50 MG TABLET PO SCH (19:55)
[2018-02-12] MEDS: Apixaban 5 MG TABLET PO SCH (19:56)
[2018-02-12] MEDS ORDERED: Acetaminophen 325 MG TABLET PO ONE (20:24)
[2018-02-13] MEDS: Gabapentin 300 MG CAPSULE PO SCH ×2 (09:30→20:17)
[2018-02-13] MEDS: Sucralfate 1 GM TABLET PO SCH ×2 (09:30→20:15)
[2018-02-13] MEDS: Baclofen 10 MG TABLET PO SCH ×3 (09:30→20:16)
[2018-02-13] MEDS: Diltiazem CD (24hr) 120 MG CAPSULE PO SCH (09:30)
[2018-02-13] MEDS: Aspirin Enteric Coated 81 MG Tablet PO SCH (09:30)
[2018-02-13] MEDS: Apixaban 5 MG TABLET PO SCH ×2 (09:30→20:16)
[2018-02-13 11:11] LABS: Basophils # 0.1 K/mcL (0.0-0.2); Basophils % 0.7 %; Eosinophils # 0.4 K/mcL (0.0-0.6); Eosinophils % 3.8 %; Hematocrit 36.3 % (35.3-44.9); Hemoglobin 11.3 g/dL (11.5-15.4); Immature Granulocytes % 1.4 % (0-4); Immature Platelets 4.3 % (1.1-6.1); Lymphocytes # 3.1 K/mcL (0.6-4.6); Lymphocytes % 32.8 %; Mean Corpuscular HGB Conc 31.1 g/dL (31.6-35.5); Mean Corpuscular Hemoglobin 25.5 pg (28.0-33.3); Mean Corpuscular Volume 81.9 fL (83.0-100.0); Mean Platelet Volume 9.9 fL (9.4-12.4); Monocytes # 0.8 K/mcL (0.0-1.3); Monocytes % 8.1 %; Platelet Count 229 K/mcL (140-400); Red Blood Count 4.43 M/mcL (3.82-4.97); Red Cell Distribution Width 17.4 % (11.5-14.5); Segmented Neutrophils % 53.2 %
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
[2018-02-13] MEDS: Fluticasone Propionate Nasal 50 MCG/SPRAY BOTTLE NS SCH (12:35)
[2018-02-13 13:02] LABS: BUN/Creatinine Ratio 23 (6-26); Blood Urea Nitrogen 21 mg/dL (6-20); Calcium 8.4 mg/dL (8.6-10.3); Carbon Dioxide 27 mEq/L (23-29); Chloride 107 mEq/L (98-107); Glucose 98 mg/dL (70-105); Magnesium 2.2 mg/dL (1.6-2.6); Osmolality,Calculated 295 (280-300); Phosphorous 3.7 mg/dL (2.7-4.5); Potassium 4.5 mEq/L (3.5-5.1); Sodium 141 mEq/L (136-145); eGFR For Non-African Americans > 60 (> 60)
[2018-02-13] MEDS: Silver Sulfadiazine 50 GM TUBE TP SCH ×2 (14:36→20:17)
[2018-02-13] MEDS ORDERED: Apixaban 5 MG TABLET PO ONE (17:15)
[2018-02-13] MEDS ORDERED: Gabapentin 300 MG CAPSULE PO ONE (17:15)
[2018-02-13] MEDS ORDERED: Aspirin Enteric Coated 81 MG Tablet PO ONE (17:15)
[2018-02-13] MEDS ORDERED: Diltiazem CD (24hr) 120 MG CAPSULE PO ONE (17:15)
[2018-02-13] MEDS ORDERED: Sucralfate 1 GM TABLET PO ONE (17:15)
[2018-02-13] MEDS ORDERED: Baclofen 10 MG TABLET PO ONE (17:15)
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
[2018-02-13] MEDS: traZODone 50 MG TABLET PO SCH (20:16)
[2018-02-13] MEDS: Famotidine 20 MG TABLET PO SCH (20:16)
[2018-02-14 03:23] LABS: Chol/HDL Ratio 3.9 (0-4.9); Cholesterol 156 mg/dL (< 200); HDL Cholesterol 40 mg/dL (40-59); Triglycerides 471 mg/dL (< 150)
[2018-02-14] MEDS: Apixaban 5 MG TABLET PO SCH (08:14)
[2018-02-14] MEDS: Baclofen 10 MG TABLET PO SCH ×2 (08:14→15:02)
[2018-02-14] MEDS: Aspirin Enteric Coated 81 MG Tablet PO SCH (08:14)
[2018-02-14] MEDS: Sucralfate 1 GM TABLET PO SCH (08:14)
[2018-02-14] MEDS: Gabapentin 300 MG CAPSULE PO SCH (08:14)
[2018-02-14] MEDS: Diltiazem CD (24hr) 120 MG CAPSULE PO SCH (08:15)
[2018-02-14] MEDS: Silver Sulfadiazine 50 GM TUBE TP SCH (08:15)
[2018-02-14] MEDS: Fluticasone Propionate Nasal 50 MCG/SPRAY BOTTLE NS SCH (08:17)
--- NOTE | 2018-02-14 09:34 | Neurology Progress Note ---
Date of Encounter: 02/14/18 Time of Encounter: 09:32 Assessment and Plan (1) Paresthesia Current Visit: Yes Status: Acute Involving the right face and arm, etiology unclear. 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 Prognosis should be fair. Stroke work up completed and no abnormality identified. Will keep her on anticoagulation therapy and aspirin 81mg daily. Okay to discharge home from neurology perspective. Subjective Principal diagnosis: paresthesia Interval history: Patient seen and examined. she is feeling well, although she still has slight right facial numbness. No right arm weakness Able to walk no difficulty. Reports no other discomforts. MRI of brain showed no acute intracranial abnormality. Objective - Constitutional Vitals: Temp Pulse Resp BP Pulse Ox 97.9 F 57 19 108/56 96 02/14/18 07:12 02/14/18 07:12 02/14/18 07:12 02/14/18 07:12 02/14/18 07:12 - Neurological Exam Sensorimotor examination: Present: intact Motor Examination: Present: grossly full strength in all extremities Motor examination - right side: 5/5: deltoids, biceps, triceps, wrist flexion, wrist extension, tractor operator battery, hip flexors, tibialis Anterior, quadriceps, toe extension (EHL), plantarflexion Motor examination - left side: 5/5: deltoids, biceps, triceps, wrist flexion, wrist extension, hip flexors, tractor operator battery, quadriceps, tibialis Anterior, toe extension (EHL), plantarflexion Sensation intact: Present: intact Posture: Present: other (None) Reflex and gait examination: intact Reflexes: Biceps: 1+, Triceps: 1+, Brachioradialis: 1+, Patella: 1+, Achilles: 1+ Mental Status Examination: Present: awake, alert, oriented to person, oriented to place, oriented to time, follows commands appropriately, answers questions appropriately, no agnosia, no aphasia, no aproxia, lucid Cranial nerve examination: Present: PERRL, EOMI, visual koch intact, corneal reflexes brisk symmetrically, sensory to face intact, mastication intact, no facial asymmetry is present, no dysarthria, hearing is intact symmetrically, soft palate elevates bilaterally upon phonation, gag reflex intact, flexes SCM and trapezius muscles symmetrically with full power, tongue protrudes midline, no atrophy or facial fasiculations present, taste anterior 2/3 tongue diminished Results - Laboratory Findings CBC and BMP: 02/13/18 03:41 02/13/18 03:41 Abnormal lab findings: Abnormal lab results Hgb 11.3 g/dL (11.5-15.4) L D 02/13/18 03:41 MCV 81.9 fL (83.0-100.0) L 02/13/18 03:41 MCH 25.5 pg (28.0-33.3) L 02/13/18 03:41 MCHC 31.1 g/dL (31.6-35.5) L 02/13/18 03:41 RDW 17.4 % (11.5-14.5) H 02/13/18 03:41 BUN 21 mg/dL (6-20) H 02/13/18 03:41 Calcium 8.4 mg/dL (8.6-10.3) L 02/13/18 03:41 Triglycerides 471 mg/dL (< 150) H 02/14/18 03:03 Ur Specific [place] > 1.030 (1.010-1.025) H 02/12/18 10:00 Ur Leukocyte Esterase Small (Negative) H 02/12/18 10:00 Urine Microscopic RBC 3-5 per hpf (0-3) H 02/12/18 10:00 Urine Microscopic WBC 5-15 per hpf (0-3) H 02/12/18 10:00 Ur Squamous Epith Cells Many per lpf (None-Few) H 02/12/18 10:00 Ur Culture Indicated? NO. (NO) A 02/12/18 10:00 Consult Discharge Plan - Plan Referrals: Clarita Perdue MD [Primary Care Provider] - 02/19/18 1:30 pm ()
[2018-02-14 15:12] VITALS: BP 105/64
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
== END 2018-02-14 17:16 | disposition home or self-care (01) ==
LOC: 3BNU 08:37 → EMEROOARM 08:37 → 3BNU 15:32
PROVIDERS: ADMIT Internal Medicine; ATTEND Internal Medicine

== ENCOUNTER 2019-09-09 11:56 | Observation (INO) ==
[2019-09-09 12:41] LABS: Basophils # 0.1 K/mcL (0.0-0.2); Eosinophils # 0.4 K/mcL (0.0-0.6); Eosinophils % 7.9 %; Hematocrit 36.6 % (35.3-44.9); Hemoglobin 11.1 g/dL (11.5-15.4); Immature Granulocytes % 0.4 % (0-4); Lymphocytes # 2.1 K/mcL (0.6-4.6); Lymphocytes % 39.5 %; Mean Corpuscular HGB Conc 30.3 g/dL (31.6-35.5); Mean Corpuscular Hemoglobin 25.3 pg (28.0-33.3); Mean Corpuscular Volume 83.6 fL (83.0-100.0); Mean Platelet Volume 9.3 fL (9.4-12.4); Monocytes # 0.6 K/mcL (0.0-1.3); Monocytes % 10.6 %; Neutrophils # 2.1 K/mcL (1.6-8.9); Platelet Count 245 K/mcL (140-400); Red Blood Count 4.38 M/mcL (3.82-4.97); Red Cell Distribution Width 14.6 % (11.5-14.5); Segmented Neutrophils % 40.6 %; White Blood Count 5.2 K/mcL (4.3-11.1)
[2019-09-09 12:51] LABS: INR 1.2; Prothrombin Time 13.6 Seconds (9.4-12.1)
[2019-09-09 12:54] LABS: Activated Partial Thrombo Time 37.5 Seconds (26.0-36.0)
[2019-09-09 12:56] LABS: Platelet Estimate Normal (Normal); Reactive Lymphocytes Present (Not Present)
[2019-09-09 13:01] LABS: BUN/Creatinine Ratio 13 (6-26); Blood Urea Nitrogen 9 mg/dL (6-20); Calcium 8.3 mg/dL (8.6-10.3); Carbon Dioxide 29 mEq/L (23-29); Chloride 104 mEq/L (98-107); Glucose 110 mg/dL (70-105); Osmolality,Calculated 291 (280-300); Potassium 4.1 mEq/L (3.5-5.1); Sodium 141 mEq/L (136-145); Troponin I < 0.03 ng/mL (< 0.04); eGFR For African Americans > 60 (> 60); eGFR For Non-African Americans > 60 (> 60)
[2019-09-09] MEDS: Nitroglycerin 0.4 MG TAB.SUBL SL PRN ×3 (13:17→16:41)
[2019-09-09] MEDS ORDERED: Furosemide 40 MG/4 ML VIAL IVP ONE (13:56)
[2019-09-09] MEDS ORDERED: Ondansetron 4 MG/2 ML VIAL IVP ONE (14:30)
[2019-09-09] MEDS ORDERED: Naloxone 0.4 MG/ML INJ IVP PRN (14:53)
[2019-09-09] MEDS ORDERED: Ondansetron 4 MG/2 ML VIAL IVP PRN (14:53)
[2019-09-09] MEDS: Gabapentin 300 MG CAPSULE PO SCH (20:16)
[2019-09-09] MEDS: Apixaban 5 MG TABLET PO SCH (20:16)
[2019-09-09] MEDS ORDERED: Morphine Sulfate 2 MG/ML SYRINGE IVP ONE (20:28)
[2019-09-09] MEDS ORDERED: methocarbamoL 750 MG TABLET PO SCH (21:00)
[2019-09-09] MEDS ORDERED: traZODone 50 MG TABLET PO SCH (21:00)
[2019-09-10 02:14] LABS: Basophils # 0.1 K/mcL (0.0-0.2); Basophils % 0.9 %; Eosinophils # 0.5 K/mcL (0.0-0.6); Eosinophils % 8.1 %; Hematocrit 34.3 % (35.3-44.9); Hemoglobin 10.4 g/dL (11.5-15.4); Immature Granulocytes % 0.4 % (0-4); Lymphocytes % 46.7 %; Mean Corpuscular HGB Conc 30.3 g/dL (31.6-35.5); Mean Corpuscular Hemoglobin 25.3 pg (28.0-33.3); Mean Corpuscular Volume 83.5 fL (83.0-100.0); Mean Platelet Volume 9.4 fL (9.4-12.4); Monocytes # 0.6 K/mcL (0.0-1.3); Monocytes % 11.2 %; Neutrophils # 1.9 K/mcL (1.6-8.9); Platelet Count 252 K/mcL (140-400); Red Blood Count 4.11 M/mcL (3.82-4.97); Red Cell Distribution Width 14.7 % (11.5-14.5); Segmented Neutrophils % 32.7 %; White Blood Count 5.7 K/mcL (4.3-11.1)
[2019-09-10 02:18] LABS: Lymphocytes # 2.7 K/mcL (0.6-4.6)
[2019-09-10 02:24] LABS: BUN/Creatinine Ratio 15 (6-26); Blood Urea Nitrogen 12 mg/dL (6-20); Carbon Dioxide 31 mEq/L (23-29); Chloride 101 mEq/L (98-107); Glucose 112 mg/dL (70-105); Magnesium 1.5 mg/dL (1.6-2.6); Osmolality,Calculated 289 (280-300); Potassium 3.4 mEq/L (3.5-5.1); Sodium 139 mEq/L (136-145); eGFR For African Americans > 60 (> 60); eGFR For Non-African Americans > 60 (> 60)
[2019-09-10 02:45] LABS: Platelet Estimate Normal (Normal)
[2019-09-10] MEDS ORDERED: Regadenoson 0.4 MG/5 ML SYRINGE IVP ONE (08:48)
[2019-09-10] MEDS ORDERED: methocarbamoL 750 MG TABLET PO SCH (09:00)
[2019-09-10] MEDS ORDERED: Isosorbide MONOnitrate (24 HR) 30 MG TAB.ER.24H PO SCH (09:00)
[2019-09-10] MEDS ORDERED: Aspirin Enteric Coated 81 MG Tablet PO SCH (09:00)
[2019-09-10] MEDS ORDERED: DilTIAZem CD (24hr) 180 MG CAP.ER.24H PO SCH (09:00)
[2019-09-10 10:53] VITALS: BP 105/70
[2019-09-10] MEDS: Apixaban 5 MG TABLET PO SCH (11:08)
[2019-09-10] MEDS: Gabapentin 300 MG CAPSULE PO SCH (11:08)
== END 2019-09-10 15:58 | disposition home or self-care (01) ==
LOC: EMEROOARM 11:56 → 3BNU 11:56 → SUATTDRO 14:53 → 3BNU 16:02
PROVIDERS: ADMIT Internal Medicine; ATTEND Internal Medicine

== ENCOUNTER 2020-02-09 20:21 | Inpatient (IN) ==
[2020-02-09] MEDS ORDERED: Ipratropium/Albuterol Neb 3 ML ONE (20:41)
[2020-02-09] MEDS ORDERED: methylPREDNISolone 125 MG/2 ML VIAL IVP ONE (20:42)
[2020-02-09] MEDS ORDERED: Ipratropium/Albuterol Neb 3 ML IH ONE (20:42)
[2020-02-09 21:46] LABS: Basophils # 0.1 K/mcL (0.0-0.2); Basophils % 0.6 %; Eosinophils # 0.4 K/mcL (0.0-0.6); Eosinophils % 4.4 %; Hematocrit 38.3 % (35.3-44.9); Hemoglobin 11.6 g/dL (11.5-15.4); Immature Granulocytes % 0.8 % (0-4); Lymphocytes % 35.7 %; Mean Corpuscular HGB Conc 30.3 g/dL (31.6-35.5); Mean Corpuscular Hemoglobin 25.4 pg (28.0-33.3); Mean Corpuscular Volume 83.8 fL (83.0-100.0); Monocytes # 0.5 K/mcL (0.0-1.3); Monocytes % 5.6 %; Neutrophils # 4.4 K/mcL (1.6-8.9); Platelet Count 238 K/mcL (140-400); Red Blood Count 4.57 M/mcL (3.82-4.97); Segmented Neutrophils % 52.9 %; White Blood Count 8.4 K/mcL (4.3-11.1)
[2020-02-09 22:07] LABS: BUN/Creatinine Ratio 12 (6-26); Blood Urea Nitrogen 9 mg/dL (6-20); Calcium 8.7 mg/dL (8.6-10.3); Carbon Dioxide 25 mEq/L (23-29); Chloride 103 mEq/L (98-107); Glucose 148 mg/dL (70-105); Osmolality,Calculated 293 (280-300); Potassium 2.9 mEq/L (3.5-5.1); Sodium 141 mEq/L (136-145); eGFR For African Americans > 60 (> 60); eGFR For Non-African Americans > 60 (> 60)
[2020-02-09 22:08] LABS: Troponin I < 0.03 ng/mL (< 0.04)
[2020-02-10] MEDS ORDERED: Ondansetron 4 MG/2 ML VIAL IVP PRN (01:51)
[2020-02-10] MEDS ORDERED: Acetaminophen 325 MG TABLET PO PRN (01:51)
[2020-02-10] MEDS ORDERED: Naloxone 0.4 MG/ML INJ IVP PRN (01:51)
[2020-02-10] MEDS ORDERED: Furosemide 20 MG TABLET PO PRN (01:57)
[2020-02-10] MEDS ORDERED: *HR* HYDROcodone/Acet 5/325 mg TABLET PO PRN (01:57)
[2020-02-10] MEDS ORDERED: Potassium Chloride 40 MEQ, Lidocaine 1% 2 ML in 0.9 % Sodium Chloride 500 ML IVPB ONE (02:03)
[2020-02-10] MEDS ORDERED: Ipratropium/Albuterol Neb 3 ML IH PRN (02:08)
[2020-02-10] MEDS: *HR* OxyCODONE Immed Rel 5 MG TABLET PO PRN ×4 (02:32→22:41)
[2020-02-10] MEDS: Ipratropium/Albuterol Neb 3 ML IH SCH ×6 (04:17→23:06)
[2020-02-10 05:18] LABS: Basophils % 0.3 %; Eosinophils % 0.1 %; Hematocrit 37.4 % (35.3-44.9); Hemoglobin 11.4 g/dL (11.5-15.4); Immature Granulocytes % 0.8 % (0-4); Lymphocytes # 0.7 K/mcL (0.6-4.6); Lymphocytes % 6.7 %; Mean Corpuscular HGB Conc 30.5 g/dL (31.6-35.5); Mean Corpuscular Hemoglobin 25.6 pg (28.0-33.3); Mean Corpuscular Volume 83.9 fL (83.0-100.0); Mean Platelet Volume 9.1 fL (9.4-12.4); Monocytes # 0.1 K/mcL (0.0-1.3); Monocytes % 0.8 %; Platelet Count 266 K/mcL (140-400); Red Blood Count 4.46 M/mcL (3.82-4.97); Segmented Neutrophils % 91.3 %
[2020-02-10 05:22] LABS: INR 1.1; Prothrombin Time 12.4 Seconds (9.4-12.1)
[2020-02-10 05:40] LABS: Alanine Aminotransferase 11 Units/L (7-52); Albumin 3.7 g/dL (3.5-5.7); Albumin/Globulin Ratio 1.4 (1.1-2.2); Alkaline Phosphatase 90 Units/L (34-104); Aspartate Amino Transferase 11 Units/L (13-39); BUN/Creatinine Ratio 14 (6-26); Bilirubin,Total 0.3 mg/dL (0.3-1.0); Blood Urea Nitrogen 9 mg/dL (6-20); Calcium 8.6 mg/dL (8.6-10.3); Carbon Dioxide 23 mEq/L (23-29); Chloride 104 mEq/L (98-107); Globulin 2.7 g/dL (2.4-3.5); Glucose 191 mg/dL (70-105); Magnesium 1.5 mg/dL (1.6-2.6); Osmolality,Calculated 290 (280-300); Sodium 138 mEq/L (136-145); Total Protein 6.4 g/dL (6.4-8.9); eGFR For African Americans > 60 (> 60); eGFR For Non-African Americans > 60 (> 60)
[2020-02-10] MEDS: Doxycycline 100 MG in 0.9 % Sodium Chloride Mini Bag 100 ML IVPB SCH ×2 (10:12→18:03)
[2020-02-10] MEDS: Aspirin Enteric Coated 81 MG Tablet PO SCH (10:16)
[2020-02-10] MEDS: Isosorbide MONOnitrate (24 HR) 30 MG TAB.ER.24H PO SCH (10:16)
[2020-02-10] MEDS: Apixaban 5 MG TABLET PO SCH ×2 (10:16→21:38)
[2020-02-10] MEDS: Gabapentin 300 MG CAPSULE PO SCH ×2 (10:16→21:37)
[2020-02-10] MEDS: MethylPREDNISolone 40 MG/ML VIAL IVP SCH ×3 (10:16→23:28)
[2020-02-10] MEDS: methocarbamoL 750 MG TABLET PO SCH (10:17)
[2020-02-10] MEDS: DilTIAZem CD (24hr) 180 MG CAP.ER.24H PO SCH (10:17)
[2020-02-10 11:39] LABS: Adenovirus Not Detected (Not Detect); Bordetella Pertussis Not Detected (Not Detect); Chlamydophila pneumoniae Not Detected (Not Detect); Coronavirus 229E Not Detected (Not Detect); Coronavirus HKU1 Not Detected (Not Detect); Coronavirus NL63 Not Detected (Not Detect); Coronavirus OC43 Not Detected (Not Detect); Human Metapneumovirus Not Detected (Not Detect); Human Rhinovirus/Enterovirus DETECTED (Not Detect); Influenza A Subtype 2009 H1 Not Detected (Not Detect); Influenza B Not Detected (Not Detect); Mycoplasma pneumoniae Not Detected (Not Detect); Parainfluenza Virus 1 Not Detected (Not Detect); Parainfluenza Virus 2 Not Detected (Not Detect); Parainfluenza Virus 3 Not Detected (Not Detect); Parainfluenza Virus 4 Not Detected (Not Detect); Respiratory Syncytial Virus Not Detected (Not Detect); SARS-CoV-2 Not Detected (Not Detect)
[2020-02-10] MEDS ORDERED: Spironolactone 25 MG TABLET PO PRN (16:29)
[2020-02-10] MEDS ORDERED: DICLOFENAC SODIUM TP PRN (16:29)
[2020-02-10] MEDS ORDERED: *HR* HYDROcodone/Acet 5/325 mg TABLET PO SCH (16:30)
[2020-02-10] MEDS ORDERED: NON-FORMULARY MEDICATION 1 EACH EACH (Omeprazole [Prilosec] 40 MG) PO SCH (21:00)
[2020-02-10] MEDS: traZODone 50 MG TABLET PO SCH (21:38)
[2020-02-11] MEDS: Ipratropium/Albuterol Neb 3 ML IH SCH ×5 (03:36→20:59)
[2020-02-11] MEDS: Doxycycline 100 MG in 0.9 % Sodium Chloride Mini Bag 100 ML IVPB SCH ×2 (05:46→18:40)
[2020-02-11 08:59] LABS: Basophils % 0.1 %; Hematocrit 37.7 % (35.3-44.9); Hemoglobin 11.3 g/dL (11.5-15.4); Immature Granulocytes % 1.2 % (0-4); Lymphocytes # 0.9 K/mcL (0.6-4.6); Lymphocytes % 6.1 %; Mean Corpuscular Hemoglobin 25.5 pg (28.0-33.3); Mean Corpuscular Volume 84.9 fL (83.0-100.0); Mean Platelet Volume 8.9 fL (9.4-12.4); Monocytes # 0.2 K/mcL (0.0-1.3); Monocytes % 1.4 %; Neutrophils # 13.3 K/mcL (1.6-8.9); Platelet Count 304 K/mcL (140-400); Red Blood Count 4.44 M/mcL (3.82-4.97); Red Cell Distribution Width 16.6 % (11.5-14.5); Segmented Neutrophils % 91.2 %; White Blood Count 14.6 K/mcL (4.3-11.1)
[2020-02-11 09:24] LABS: BUN/Creatinine Ratio 23 (6-26); Blood Urea Nitrogen 16 mg/dL (6-20); Calcium 9.1 mg/dL (8.6-10.3); Carbon Dioxide 26 mEq/L (23-29); Chloride 102 mEq/L (98-107); Glucose 168 mg/dL (70-105); Osmolality,Calculated 289 (280-300); Potassium 4.7 mEq/L (3.5-5.1); Sodium 137 mEq/L (136-145); eGFR For African Americans > 60 (> 60); eGFR For Non-African Americans > 60 (> 60)
[2020-02-11] MEDS: DilTIAZem CD (24hr) 180 MG CAP.ER.24H PO SCH (09:29)
[2020-02-11] MEDS: methocarbamoL 750 MG TABLET PO SCH (09:30)
[2020-02-11] MEDS: Aspirin Enteric Coated 81 MG Tablet PO SCH (09:30)
[2020-02-11] MEDS: Gabapentin 300 MG CAPSULE PO SCH ×2 (09:30→20:03)
[2020-02-11] MEDS: Isosorbide MONOnitrate (24 HR) 30 MG TAB.ER.24H PO SCH (09:30)
[2020-02-11] MEDS: Apixaban 5 MG TABLET PO SCH ×2 (09:30→20:03)
[2020-02-11] MEDS: MethylPREDNISolone 40 MG/ML VIAL IVP SCH (09:30)
[2020-02-11] MEDS: *HR* OxyCODONE Immed Rel 5 MG TABLET PO PRN ×3 (09:43→22:59)
[2020-02-11] MEDS: traZODone 50 MG TABLET PO SCH (20:03)
[2020-02-12] MEDS: Ipratropium/Albuterol Neb 3 ML IH SCH ×6 (00:01→20:59)
[2020-02-12] MEDS: Doxycycline 100 MG in 0.9 % Sodium Chloride Mini Bag 100 ML IVPB SCH ×2 (05:34→18:45)
[2020-02-12] MEDS: Gabapentin 300 MG CAPSULE PO SCH ×2 (07:49→20:53)
[2020-02-12] MEDS: Apixaban 5 MG TABLET PO SCH ×2 (07:50→20:53)
[2020-02-12] MEDS: DilTIAZem CD (24hr) 180 MG CAP.ER.24H PO SCH (07:50)
[2020-02-12] MEDS: Aspirin Enteric Coated 81 MG Tablet PO SCH (07:50)
[2020-02-12] MEDS: Isosorbide MONOnitrate (24 HR) 30 MG TAB.ER.24H PO SCH (07:50)
[2020-02-12] MEDS: methocarbamoL 750 MG TABLET PO SCH (07:50)
[2020-02-12] MEDS: MethylPREDNISolone 40 MG/ML VIAL IVP SCH (07:51)
[2020-02-12] MEDS: *HR* OxyCODONE Immed Rel 5 MG TABLET PO PRN ×2 (07:55→16:27)
[2020-02-12] MEDS: GuaiFENesin/Codeine Oral Soln 5 ML UDC PO PRN ×2 (13:26→20:55)
[2020-02-12] MEDS: traZODone 50 MG TABLET PO SCH (20:53)
[2020-02-13] MEDS: Ipratropium/Albuterol Neb 3 ML IH SCH ×6 (00:27→20:07)
[2020-02-13 01:42] LABS: BUN/Creatinine Ratio 33 (6-26); Blood Urea Nitrogen 24 mg/dL (6-20); Calcium 8.7 mg/dL (8.6-10.3); Carbon Dioxide 28 mEq/L (23-29); Chloride 100 mEq/L (98-107); Glucose 135 mg/dL (70-105); Osmolality,Calculated 292 (280-300); Potassium 4.6 mEq/L (3.5-5.1); Sodium 138 mEq/L (136-145); eGFR For African Americans > 60 (> 60); eGFR For Non-African Americans > 60 (> 60)
[2020-02-13 02:40] LABS: Hematocrit 35.7 % (35.3-44.9); Hemoglobin 10.7 g/dL (11.5-15.4); Mean Corpuscular Hemoglobin 25.4 pg (28.0-33.3); Mean Corpuscular Volume 84.8 fL (83.0-100.0); Mean Platelet Volume 9.4 fL (9.4-12.4); Platelet Count 322 K/mcL (140-400); Red Blood Count 4.21 M/mcL (3.82-4.97); Red Cell Distribution Width 16.8 % (11.5-14.5); White Blood Count 12.2 K/mcL (4.3-11.1)
[2020-02-13] MEDS: Gabapentin 300 MG CAPSULE PO SCH ×2 (08:47→19:54)
[2020-02-13] MEDS: DilTIAZem CD (24hr) 180 MG CAP.ER.24H PO SCH (08:47)
[2020-02-13] MEDS: Isosorbide MONOnitrate (24 HR) 30 MG TAB.ER.24H PO SCH (08:47)
[2020-02-13] MEDS: methocarbamoL 750 MG TABLET PO SCH (08:47)
[2020-02-13] MEDS: Apixaban 5 MG TABLET PO SCH ×2 (08:47→19:53)
[2020-02-13] MEDS: Aspirin Enteric Coated 81 MG Tablet PO SCH (08:48)
[2020-02-13] MEDS: MethylPREDNISolone 40 MG/ML VIAL IVP SCH ×2 (08:48→19:54)
[2020-02-13] MEDS: GuaiFENesin/Codeine Oral Soln 5 ML UDC PO PRN ×2 (08:55→20:03)
[2020-02-13] MEDS: Doxycycline 100 MG in 0.9 % Sodium Chloride Mini Bag 100 ML IVPB SCH ×2 (10:51→17:21)
[2020-02-13] MEDS: *HR* OxyCODONE Immed Rel 5 MG TABLET PO PRN ×2 (16:34→22:38)
[2020-02-13] MEDS: traZODone 50 MG TABLET PO SCH (19:53)
[2020-02-14] MEDS: Ipratropium/Albuterol Neb 3 ML IH SCH ×4 (00:19→11:26)
[2020-02-14] MEDS: Doxycycline 100 MG in 0.9 % Sodium Chloride Mini Bag 100 ML IVPB SCH (05:12)
[2020-02-14] MEDS: GuaiFENesin/Codeine Oral Soln 5 ML UDC PO PRN (05:12)
[2020-02-14 06:42] VITALS: BP 175/76
[2020-02-14] MEDS: MethylPREDNISolone 40 MG/ML VIAL IVP SCH (07:49)
[2020-02-14] MEDS: methocarbamoL 750 MG TABLET PO SCH (07:50)
[2020-02-14] MEDS: Apixaban 5 MG TABLET PO SCH (07:50)
[2020-02-14] MEDS: Gabapentin 300 MG CAPSULE PO SCH (07:51)
[2020-02-14] MEDS: Isosorbide MONOnitrate (24 HR) 30 MG TAB.ER.24H PO SCH (07:51)
[2020-02-14] MEDS: Aspirin Enteric Coated 81 MG Tablet PO SCH (07:51)
[2020-02-14] MEDS: DilTIAZem CD (24hr) 180 MG CAP.ER.24H PO SCH (07:52)
== END 2020-02-14 10:30 | disposition home or self-care (01) | DRG 140 ==
LOC: EMEROOARM 20:21 → 3NENU 20:21 → SUATTDRO 23:07 → 3NENU 02-10 00:05
PROVIDERS: ADMIT Family Medicine; ATTEND Internal Medicine